=== PATIENT | male | born 1945 | race Caucasian/White ===

== ENCOUNTER 2016-12-29 12:08 | Inpatient (IN) | payer MEDICARE ==
[2016-12-29 12:09] VITALS: BMI 24.2
--- NOTE | 2016-12-29 12:50 | ED PDOC ---
Lower Extremity Pain/Injury Time Seen by Provider: 12/29/16 12:22 Chief Complaint (Nursing): Lower Extremity Problem/Injury Chief Complaint (Provider): right knee pain History Per: Patient, EMS Additional Complaint(s): Patient states at home yesterday he tripped and fell injuring right knee. Initially he was able to get up and walk around and took Advil for pain. Patient did not seek medical attention yesterday and woke up today with increasing pain and inability to walk or bear weight. He called ambulance and was brought here. Patient rates the pain as an 8 out of 10. He denies any other injuries as a result of fall and denies any dizziness or syncope prior to fall, no head injury or LOC. No meds taken for pain relief today. Past Medical History Reviewed: Historical Data, Nursing Documentation, Vital Signs Vital Signs: Last Vital Signs Temp Pulse Resp BP Pulse Ox 98 12/29/16 12:12 - Medical History PMH: Anemia, Arthritis, CAD, CHF, COPD, HTN, Hypercholesterolemia, Chronic Kidney Disease (renal insufficiency) - Surgical History Surgical History: CABG (CABG x 4 - 1997), Cholecystectomy (11/2002), Coronary Stent (2005 (3x)), Pacemaker Other surgeries: toe amputation, left hip replacement, eye surgery - Family History Family History: States: No Known Family Hx - Living Arrangements Living Arrangements: Alone - Social History Current smoker - smoking cessation education provided: Yes (1 ppd) Alcohol: None Drugs: Denies - Home Medications Home Medications: Ambulatory Orders Medication Instructions Recorded Atorvastatin [Lipitor] 40 mg PO DAILY 08/26/14 Brimonidine Tartrate/Timolol 1 drop OU BID 08/26/14 [Combigan 0.2%-0.5% Eye Drops] Clopidogrel [Plavix] 75 mg PO DAILY 08/26/14 Tamsulosin [Flomax] 0.4 mg PO DAILY 05/17/15 Insulin Aspart, Recombinant 12 units SC BID 12/28/15 [Novolog] Insulin Glargine,Hum.rec.anlog 25 units SC HS 12/28/15 [Lantus] Carvedilol [Coreg] 6.25 mg PO Q12 #0 tab 12/31/15 Furosemide [Lasix] 40 mg PO DAILY #0 udc 12/31/15 Potassium Chloride [K-Tab ER] 10 meq PO DAILY #30 tablet.er 12/31/15 Valsartan [Diovan] 160 mg PO DAILY #0 tab 12/31/15 - Allergies Allergies/Adverse Reactions: Allergies Allergy/AdvReac Type Severity Reaction Status Date / Time No Known Allergies Allergy Verified 12/29/16 12:11 Wells Criteria for PE - Wells Criteria for Pulmonary Embolism Clinical Signs and Symptoms of DVT: No P.E is #1 Diagnosis, or Equally Likely: No Heart Rate >100: No Immobilization at least 3 days;Surgery previous 4 weeks: No Previous, objectively diagnosed PE or DVT: No Hemoptysis: No Malignancy w/treatment within 6 months, or palliative: No Total Score: 0 Review of Systems ROS Statement: Except As Marked, All Systems Reviewed And Found Negative Constitutional: Negative for: Fever Cardiovascular: Negative for: Chest Pain Respiratory: Negative for: Cough Gastrointestinal: Negative for: Nausea, Vomiting Musculoskeletal: Positive for: Leg Pain (Right knee pain status post fall yesterday) Physical Exam - Reviewed Nursing Documentation Reviewed: Yes Vital Signs Reviewed: Yes - Physical Exam Appears: Positive for: Well Skin: Negative for: Rash Cardiovascular/Chest: Positive for: Regular Rate, Rhythm Respiratory: Positive for: Normal Breath Sounds Extremity: Positive for: Other (Moderate swelling and tenderness with decreased range of motion of right knee, unable to perform straight leg raise, normal distal sensation) Neurologic/Psych: Positive for: Alert, Oriented - Laboratory Results Result Diagrams: 12/29/16 14:20 12/29/16 14:20 - ECG Interpretation Of ECG: No acute changes noted on EKG, reviewed by ED attending O2 Sat by Pulse Oximetry: 98 Pulse Ox Interpretation: Normal - Other Rad Right knee X-ray X-Ray Interpretation: patellar fracture, degenerative changes, ? tib plateau fx CT right knee X-Ray: Read By Radiologist X-Ray Interpretation: see below bedside chest X-Ray: Interpreted by Me, Viewed By Me X-Ray Interpretation: no acute finding Medical Decision Making Medical Decision Makin-year-old male with right knee pain Plan: Percocet for pain X-ray right knee X-ray demonstrates patellar fracture with questionable tibial plateau fracture, CT of the right knee was ordered. CT: IMPRESSION: 1.Longitudinal acute nondisplaced fracture in the lateral patella. 2. Longitudinal acute nondisplaced fracture in the lateral tibial plateau. 3. Moderate hemarthrosis. 4. Permeative pattern in the visualized bones. The differential considerations include multiple myeloma, lymphoma and metastasis amongst others. Clinical correlation and follow-up is advised. Primary care doctor is Dr. Lin. Case was discussed with family practice resident who will admit patient and contact ortho for consult. Knee immobilizer was applied to the patient's right leg. Patient is aware of admission and he agrees to stay. Procedures - Splinting Location: right knee Pre-Made Type: knee immobilizer Pre-Proc Neuro Vasc Exam: normal Post-Proc Neuro Vasc Exam: normal Disposition - Clinical Impression Clinical Impression: Tibial plateau fracture, right, Right patella fracture - Patient ED Disposition Is Patient to be Admitted: Yes - Disposition Disposition Time: 19:35 Condition: FAIR - Pt Status Changed To: Hospital Disposition Of: Inpatient - Admit Certification Admit to Inpatient:: After my assessment, the patient will require hospitalization for at least two midnights. This is because of the severity of symptoms shown, intensity of services needed, and/or the medical risk in this patient being treated as an outpatient. - POA Present On Arrival: None Results - Lab Results Lab Results: 12/29/16 14:20 WBC 10.6 RBC 4.83 Hgb 13.9 Hct 41.9 MCV 86.7 MCH 28.9 MCHC 33.3 RDW 15.0 H Plt Count 218 MPV 8.8 Neut % (Auto) 74.6 Lymph % (Auto) 8.7 L [place] % (Auto) 14.1 H Eos % (Auto) 1.7 Baso % (Auto) 0.9 Neut # 7.9 H Lymph # 0.9 L [place] # 1.5 H Eos # 0.2 Baso # 0.1 Neutrophils % (Manual) 74 Lymphocytes % (Manual) 9 L Reactive Lymphs % 2 H Monocytes % (Manual) 13 H Eosinophils % (Manual) 1 Basophils % (Manual) 1 Platelet Estimate Normal Anisocytosis (manual) Slight Sodium 144 Potassium 4.2 Chloride 106 Carbon Dioxide 23 Anion Gap 20 BUN 43 H Creatinine 3.0 H Est GFR ( Amer) 25 Est GFR (Non-Af Amer) 21 Random Glucose 146 H Calcium 9.5 Total Bilirubin 1.2 AST 22 ALT 19 L Alkaline Phosphatase 94 Total Protein 7.0 Albumin 4.0 Globulin 3.0 Albumin/Globulin Ratio 1.3
[2016-12-29] MEDS ORDERED: Oxycodone/Acetaminophen 5/325 mg Tab PO STA ×2 (12:52→19:33)
[2016-12-29] MEDS ORDERED: Sodium Chloride 0.9% 1,000 ML IV STA (14:03)
--- NOTE | 2016-12-29 14:35 | RAD ---
PROCEDURE: Right Knee Radiographs. HISTORY: Trauma COMPARISON: None. FINDINGS: BONES: There is an acute longitudinal fracture in the lateral patella. There is diffuse bone demineralization. Bone alignment is normal. JOINTS: There is severe tricompartmental degenerative osteoarthrosis with reduced on the marginal osteophytes and chondrocalcinosis. JOINT EFFUSION: There is a moderate suprapatellar joint effusion. OTHER FINDINGS: There is moderate prepatellar soft tissue swelling. There are advanced atherosclerotic vascular calcifications. IMPRESSION: Acute longitudinal fracture in the lateral patella. Moderate suprapatellar joint effusion.
[2016-12-29 14:52] LABS: BASO # 0.1 K/uL (0.0-0.2); BASO % 0.9 % (0.0-2.0); EOS # 0.2 K/uL (0.0-0.7); EOS % 1.7 % (0.0-4.0); HEMATOCRIT 41.9 % (35.0-51.0); LYMPH # 0.9 K/uL (1.0-4.3); LYMPH % 8.7 % (20.0-40.0); MEAN CELL VOLUME 86.7 fl (80.0-94.0); MEAN CORPUSCULAR HEMOGLOBIN 28.9 pg (27.0-31.0); MEAN CORPUSCULAR HGB CONC 33.3 g/dL (33.0-37.0); MEAN PLATELET VOLUME 8.8 fl (7.2-11.7); MONO # 1.5 K/uL (0.0-0.8); MONO % 14.1 % (0.0-10.0); NEUT # 7.9 K/uL (1.8-7.0); NEUT % 74.6 % (50.0-75.0); NRBC % 0.1 % (0.0-0.0); PLATELET COUNT 218 K/uL (130-400); WHITE BLOOD COUNT 10.6 K/uL (4.8-10.8)
[2016-12-29 15:04] LABS: ALB/GLOB RATIO 1.3 (1.0-2.1); BILIRUBIN,TOTAL 1.2 mg/dl (0.2-1.3); CALCIUM 9.5 mg/dL (8.4-10.2); POTASSIUM 4.2 MMOL/L (3.6-5.0)
[2016-12-29 15:28] LABS: BASOPHIL 1 % (0-2); EOSINOPHIL 1 % (0-7); NEUTROPHIL 74 % (42-75); REACTIVE LYMPHOCYTES 2 % (0-0); TOTAL CELLS COUNTED 100
--- NOTE | 2016-12-29 16:25 | RAD ---
HISTORY: clearance COMPARISON: 12/28/2015 FINDINGS: LUNGS: The lungs are well inflated and clear. PLEURA: No significant pleural effusion identified, no pneumothorax apparent. CARDIOVASCULAR: There is mild cardiomegaly. Status post CABG. There is stable position of a left-sided dual lead transvenous permanent pacing device. OSSEOUS STRUCTURES: No significant abnormalities. VISUALIZED UPPER ABDOMEN: Normal. OTHER FINDINGS: None. IMPRESSION: No active pulmonary disease.
--- NOTE | 2016-12-29 17:47 | CT ---
PROCEDURE: CT of the Right Hip. HISTORY: trauma, ? tib plateau fracture COMPARISON: Plain radiographs performed the same day. TECHNIQUE: Contiguous axial images of the right hip were obtained. Coronal and sagittal reformats were generated. FINDINGS: BONES: There is redemonstration of a longitudinal nondisplaced fracture in the lateral patella. There is also a long to jejunal nondisplaced fracture in the lateral tibial plateau. There is permeative pattern in the visualized tibia, fibula, femur and patella. There is also diffuse bone demineralization. There is severe tricompartmental degenerative osteoarthrosis with reduced joint spaces, marginal osteophytes and chondrocalcinosis, worse in the medial compartment. There is moderate hemarthrosis. There are advanced atherosclerotic vascular calcifications. SOFT TISSUES: There is a moderate prepatellar and periarticular soft tissue swelling. IMPRESSION: 1.Longitudinal acute nondisplaced fracture in the lateral patella. 2. Longitudinal acute nondisplaced fracture in the lateral tibial plateau. 3. Moderate hemarthrosis. 4. Permeative pattern in the visualized bones. The differential considerations include multiple myeloma, lymphoma and metastasis amongst others. Clinical correlation and follow-up is advised.
--- NOTE | 2016-12-29 19:33 | CP.PCM.HP ---
<Brayden Polo - Last Filed: 12/29/16 21:40> History of Present Illness - History of Present Illness History of Present Illness: 71 yo M w/ PMHx of CAD (s/p CABG), CHF, COPD, HTN, CKD, Legally blind presented to ED today due to right knee pain and inability to bear weight after mechanical fall 1 day prior. Patient states he is legally blind and when he woke up yesterday, he needed to use the restroom and usually he requires some time in the morning for his eyes to adjust, though states he couldn't wait. Patient went to the bathroom but was unable to find handle to open and fell onto knee. Patient denies lightheadedness, dizziness, chest pain, dyspnea, loss of consciousness, injury to other parts of body (including head), or palpitations. Patient has been compliant with medications. Lives alone at home without services and minimal help by family. No meds taken for pain relief today. PMHx: Anemia, Arthritis, CAD, CHF, COPD, HTN, Hypercholesterolemia, CKD, Legally blind Meds: As per chart Allergies: NKDA Surgeries: CABG (CABG x 4 - 1997), Cholecystectomy (11/2002), Coronary Stent ( 2005 (3x)), AICD/Pacemaker?, toe amputation, left hip replacement Family hx: Non-contributory Social hx: Lives at home alone without nursing services. Able to do most ADLs he states though neice/daughter occasionally come to help. Has walker at home but does not use it. ED Course: Vitals stable PE: Right knee (Mod swelling and tenderness with decreased range of motion of right knee, unable to perform straight leg raise, normal distal sensation) Percocet x1 CXR, EKG unremarkable Right knee X-ray demonstrates patellar fracture with questionable tibial plateau fracture, CT of the right knee was ordered. CT: IMPRESSION: 1.Longitudinal acute nondisplaced fracture in the lateral patella. 2. Longitudinal acute nondisplaced fracture in the lateral tibial plateau. 3. Moderate hemarthrosis. 4. Permeative pattern in the visualized bones. The differential considerations include multiple myeloma, lymphoma and metastasis amongst others. Clinical correlation and follow-up is advised. Patient put into knee immobilizer Present on Admission - Present on Admission Any Indicators Present on Admission: No Review of Systems - Review of Systems All systems: reviewed and no additional remarkable complaints except (mentioned in HPI) Past Patient History - Infectious Disease Hx of Infectious Diseases: None - Tetanus Immunizations Tetanus Immunization: Unknown - Past Medical History & Family History Past Medical History?: Yes - Past Social History Alcohol: None Drugs: Denies - CARDIAC Hx Congestive Heart Failure: Yes Hx Hypercholesterolemia: Yes Hx Hypertension: Yes Hx Pacemaker: Yes - PULMONARY Hx Chronic Obstructive Pulmonary Disease (COPD): Yes - NEUROLOGICAL Hx Neurological Disorder: Yes - HEENT Hx HEENT Problems: Yes (Glaucoma both eyes according to patient) Hx Glaucoma: Yes - RENAL Hx Chronic Kidney Disease: Yes (renal insufficiency) - ENDOCRINE/METABOLIC Hx Endocrine Disorders: Yes Hx Diabetes Mellitus Type 1: Yes - HEMATOLOGICAL/ONCOLOGICAL Hx Anemia: Yes - INTEGUMENTARY Hx Dermatological Problems: No Other/Comment: both lower extremities with dry skin and with brownish discoloration - MUSCULOSKELETAL/RHEUMATOLOGICAL Hx Arthritis: Yes - GASTROINTESTINAL Hx Gastrointestinal Disorders: No - GENITOURINARY/GYNECOLOGICAL Hx Genitourinary Disorders: No - PSYCHIATRIC Hx Psychophysiologic Disorder: No Hx Substance Use: No - SURGICAL HISTORY Hx Cholecystectomy: Yes (11/2002) Hx Coronary Artery Bypass Graft: Yes (CABG x - 1997) Hx Coronary Stent: Yes (2005 (3x)) - ANESTHESIA Hx Anesthesia: Yes Hx Anesthesia Reactions: No Hx Malignant Hyperthermia: No Meds Allergies/Adverse Reactions: Allergies Allergy/AdvReac Type Severity Reaction Status Date / Time No Known Allergies Allergy Verified 12/29/16 12:11 Physical Exam - Constitutional Appears: Well, Non-toxic, No Acute Distress - Head Exam Head Exam: ATRAUMATIC, NORMAL INSPECTION, NORMOCEPHALIC - Eye Exam Eye Exam: Normal appearance - Neck Exam Neck exam: Positive for: Normal Inspection - Respiratory Exam Respiratory Exam: Clear to Auscultation Bilateral, NORMAL BREATHING PATTERN. absent: Rales, Rhonchi, Wheezes - Cardiovascular Exam Cardiovascular Exam: RRR, +S1, +S2 - GI/Abdominal Exam GI & Abdominal Exam: Normal Bowel Sounds, Soft. absent: Tenderness - Extremities Exam Additional comments: RLE: knee in knee immobilizer, pinky toe amputated, pedal pulses present 2+, pain on papation and movement of extremity, neurovascular intact LLE: normal inspection with neurovascular intact unable to bear weight - Neurological Exam Neurological exam: Alert, Oriented x3 - Psychiatric Exam Psychiatric exam: Normal Affect, Normal Mood - Skin Skin Exam: Dry, Intact, Normal Color, Warm Results - Vital Signs Recent Vital Signs: Last Vital Signs Temp Pulse Resp BP Pulse Ox 98 12/29/16 19:28 - Labs Result Diagrams: 12/29/16 14:20 12/29/16 14:20 Assessment & Plan (1) Right patella fracture Status: Acute (2) Tibial plateau fracture, right Status: Acute (3) CHF (congestive heart failure) Status: Chronic (4) Hypertension Status: Chronic (5) Diabetes Status: Chronic (6) Renal failure Status: Chronic (7) DVT prophylaxis Status: Acute - Assessment and Plan (Free Text) Assessment: 71 yo M w/ PMHx of CAD (s/p CABG), CHF, COPD, HTN, CKD, Legally blind with right patella/tibial fracture s/p mechanical fall 1 day ago. Right knee X-ray demonstrates patellar fracture with questionable tibial plateau fracture, CT of the right knee was ordered. CT: IMPRESSION: 1.Longitudinal acute nondisplaced fracture in the lateral patella. 2. Longitudinal acute nondisplaced fracture in the lateral tibial plateau. 3. Moderate hemarthrosis. 4. Permeative pattern in the visualized bones. The differential considerations include multiple myeloma, lymphoma and metastasis amongst others. Clinical correlation and follow-up is advised. Plan: (1) Right patella fracture, Tibial plateau fracture - Due to mechanical fall which his vision loss likely contributed towards - No history/symptoms of neurological/cardiovascular cause - Patient unable to bear weight, in addition he has no one to care for him at home, patient will need a plan for a safe/effective discharge - Ortho consulted, appreciate recommendations - Knee splinted in knee immobilizer - Percocet PRN Pain - PT/OT eval - Social work for possible services at home - Of note, reported in CT Scan " Permeative pattern in the visualized bones. The differential considerations include multiple myeloma, lymphoma and metastasis amongst others. Clinical correlation and follow-up is advised. " (2) CAD/CHF (congestive heart failure) - Stable asymptomatic - Continue home meds except for plavix at this time in case of surgical intervention - Dr. Ney Marcano is patient's hydrochloric area supervisor (3) Hypertension - Stable, asymptomatic - Continue home meds (4) Diabetes - Lantus 25U HS - Novalog 12U BID - Accuchecks ACHS - Diabetic diet - Insulin sliding scale - Last HgbA1c 2014 7.5%, will repeat (5) Chronic Renal failure (Stage 4) - Stable at this time - Non-dialysis patient - Follows on the outpatient basis with Dr. Naidu (6) DVT prophylaxis - SCDs for now in case of surgical intervention Pharmacy is [facility] in [place]. <Leif Lin - Last Filed: 12/30/16 07:05> Results - Vital Signs Recent Vital Signs: Last Vital Signs Temp 98 F 12/29/16 20:42 Pulse 82 12/30/16 01:36 Resp 18 12/30/16 01:36 BP 174/97 H 12/29/16 23:02 Pulse Ox 97 12/30/16 01:36 - Labs Result Diagrams: 12/29/16 14:20 12/29/16 14:20 Labs: Laboratory Results - last 24 hr 12/29/16 22:27 POC Glucose (mg/dL) 106 Attending/Attestation - Attestation I have personally seen and examined this patient.: Yes I have fully participated in the care of the patient.: Yes I have reviewed all pertinent clinical information: Yes
[2016-12-29] MEDS ORDERED: Oxycodone/Acetaminophen 5/325 mg Tab ONE (20:04)
[2016-12-29] MEDS ORDERED: Glucagon Recombinant 1 mg Inj IM PRN (20:23)
[2016-12-29] MEDS ORDERED: Dextrose 50% SYRINGE Inj (50 ml) IV PRN (20:23)
[2016-12-29] MEDS: Insulin Regular 100 units/ml SC SCH (23:12)
[2016-12-29] MEDS: Insulin Detemir 100 Units/ml Inj SC SCH (23:13)
[2016-12-30] MEDS: Insulin Regular 100 units/ml SC SCH ×4 (06:50→23:02)
[2016-12-30 07:05] LABS: MEAN CELL VOLUME 88.7 fl (80.0-94.0); MEAN CORPUSCULAR HEMOGLOBIN 28.6 pg (27.0-31.0); MEAN CORPUSCULAR HGB CONC 32.3 g/dL (33.0-37.0); RED CELL DISTRIBUTION WIDTH 14.9 % (11.5-14.5)
[2016-12-30 07:20] LABS: PARTIAL THROMBOPLASTIN TIME 31.5 SECONDS (23.3-32.5)
[2016-12-30 07:25] LABS: BLOOD UREA NITROGEN 41 mg/dl (9-20); CALCIUM 8.5 mg/dL (8.4-10.2); CARBON DIOXIDE 22 mmol/L (22-30); CHLORIDE 105 mmol/L (98-107); CHOLESTEROL 70 mg/dL (0-199); GFR AFRICAN-AMERICAN 28; GLUCOSE,RANDOM 95 mg/dL (75-110); SODIUM 144 mmol/l (132-148)
--- NOTE | 2016-12-30 07:38 | PQF CHF ---
This form is a permanent part of the medical record 12/30/16 Dr. Tanner, Would you please clarify the TYPE of CHF if known.An old echo is in the EMR. Clarification of your documentation is requested to better reflect the severity of illness and intensity of treatment of your patient. Indicators present [x] Diagnosis of history of CHF [] BNP > 200 [] Imaging Finding of Pulmonary Edema /Pleural Effusions [] Fluid/Volume Overload [] Pitting edema [] Ejection Fraction < 40% (Indicative of Systolic Heart Failure) [] Ejection Fraction > 40% (Indicative of Diastolic Heart Failure) [] Dyspnea / Orthopenea / Paroxysmal Nocturnal Dyspnea [] Other: Location in the medical record that reflects the above clinical findings: [] Treatment Provided: [] PHYSICIAN'S RESPONSE Based on your medical judgment of the clinical indicators outlined above, are you treating this patient for a known or suspected: [] Acute CHF [] Systolic [] Diastolic [] Combined [] Chronic CHF [] Systolic [] Diastolic [] Combined [] Acute on Chronic CHF []Systolic [] Diastolic [] Combined [] CHF due hypertension [] Acute systolic []Chronic systolic [] Acute/ chronic systolic [] Other, please indicate: [] [] If Unable to Determine, please check the box, sign and date. Present On Admission (POA) Indicator: [] Present at the time of admission [] Not present at the time of admission [] Clinically Undetermined In responding to this query, please exercise your independent professional judgment. The fact that a question is asked does not imply that any particular answer is desired or expected. Thank you for your clarification on this documentation. If you have any questions please call:[phone] * Thank you, Liss Wilson RN CDMP MTDD
[2016-12-30 07:52] LABS: POTASSIUM 4.8 MMOL/L (3.6-5.0)
--- NOTE | 2016-12-30 08:39 | CP.PCM.PN ---
<Sheba Romero - Last Filed: 12/30/16 09:31> Subjective - Date & Time of Evaluation Date of Evaluation: 12/30/16 Time of Evaluation: 08:39 - Subjective Subjective: 71 year old male with PMHx of CAD (s/p CABG), CHF, COPD, HTN, CKD, Legally blind was seen resting comfortably at bedside for right knee pain and inability to bear weight after mechanical fall. Patient is resting comfortably in bed with knee immobilizer intact to right lower extremity. He denies any pain. Denies any acute events overnight. Denies n/v/f/c/sob/cp. Objective - Vital Signs/Intake and Output Vital Signs (last 24 hours): Temp Pulse Resp BP Pulse Ox 98.4 F 70 20 113/55 L 97 12/30/16 08:17 12/30/16 08:17 12/30/16 08:17 12/30/16 08:17 12/30/16 08:17 - Medications Medications: Current Medications Atorvastatin Calcium (Lipitor) 40 mg PO DAILY [facility] Brimonidine Tartrate (Alphagan 0.2% Opht) 1 drop OU BID [facility] Carvedilol (Coreg) 6.25 mg PO Q12 [facility] Last Admin: 12/29/16 23:02 Dose: 6.25 mg Dextrose (Glutose 15) 0 gm PO ONCE PRN; Protocol PRN Reason: Hypoglycemia Protocol Dextrose (Dextrose 50% Inj) 0 ml IV STAT PRN; Protocol PRN Reason: Hyglycemia Protocol Furosemide (Lasix) 40 mg PO DAILY [facility] Glucagon (Glucagen Diagnostic Kit) 0 mg IM STAT PRN; Protocol PRN Reason: Hypoglycemia Protocol Influenza Virus Vaccine (Afluria (Pf)(5yr & Older)) 0.5 ml IM .ONCE ONE Stop: 12/30/16 09:01 Insulin Detemir (Levemir) 25 units SC HS [facility] Last Admin: 12/29/16 23:13 Dose: Not Given Insulin Human Lispro (Humalog) 12 units SC BID [facility] Insulin Human Regular (Humulin R) 0 units SC ACHS [facility] PRN Reason: Protocol Last Admin: 12/30/16 06:50 Dose: Not Given Oxycodone/Acetaminophen (Percocet 5/325 Mg Tab) 1 tab PO Q4 PRN PRN Reason: Pain, moderate (4-7) Stop: 01/01/17 20:24 Potassium Chloride (Klor-Con 10) 10 meq PO DAILY [facility] Tamsulosin HCl (Flomax) 0.4 mg PO DAILY [facility] Timolol Maleate (Timoptic 0.5% Ophth Soln) 1 drop OU BID [facility] Valsartan (Diovan) 160 mg PO DAILY [facility] - Labs Labs: 12/30/16 05:30 12/30/16 05:30 PT 11.7 SECONDS (9.6-11.2) H 12/30/16 05:30 INR 1.13 (0.92-1.08) H 12/30/16 05:30 APTT 31.5 SECONDS (23.3-32.5) 12/30/16 05:30 - Constitutional Appears: Well, Non-toxic, No Acute Distress - Head Exam Head Exam: NORMAL INSPECTION - Eye Exam Eye Exam: Normal appearance - Neck Exam Neck Exam: Normal Inspection - Respiratory Exam Respiratory Exam: NORMAL BREATHING PATTERN. absent: Rales, Rhonchi, Wheezes - Cardiovascular Exam Cardiovascular Exam: REGULAR RHYTHM, +S1, +S2 - GI/Abdominal Exam GI & Abdominal Exam: Soft, Normal Bowel Sounds. absent: Tenderness - Extremities Exam Additional comments: Knee immobilizer in place to RLE. 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 Pedal pulses present b/l. Nails 1-9 are elongated and dystrophic. - Back Exam Back Exam: NORMAL INSPECTION - Neurological Exam Neurological Exam: Alert, Awake, Oriented x3 - Psychiatric Exam Psychiatric exam: Normal Affect, Normal Mood - Skin Skin Exam: Dry, Normal Color, Warm Assessment and Plan - Assessment and Plan (Free Text) Assessment: 71 yo M w/ PMHx of CAD (s/p CABG), CHF, COPD, HTN, CKD, Legally blind with right patella/tibial fracture s/p mechanical fall 2 day ago. Plan: 1. Right patella fracture, Tibial plateau fracture - Right knee X-ray demonstrates patellar fracture with questionable tibial plateau fracture, CT of the right knee was ordered. - CT: IMPRESSION: 1.Longitudinal acute nondisplaced fracture in the lateral patella. 2. Longitudinal acute nondisplaced fracture in the lateral tibial plateau. 3. Moderate hemarthrosis. 4. Permeative pattern in the visualized bones. The differential considerations include multiple myeloma, lymphoma and metastasis amongst others. Clinical correlation and follow-up is advised. - Due to mechanical fall which his vision loss likely contributed towards - No history/symptoms of neurological/cardiovascular cause - Patient unable to bear weight, in addition he has no one to care for him at home, patient will need a plan for a safe/effective discharge - Ortho consulted, appreciate recommendations - Knee splinted in knee immobilizer - Percocet PRN Pain - PT/OT eval - Social work for possible services at home - Podiatry consulted for dystrophic toenails b/l 2. CAD/CHF (congestive heart failure) - Stable asymptomatic - Continue home meds except for plavix at this time in case of surgical intervention - Dr. Ney Marcano is patient's front desk auxiliary 3. Hypertension - Stable, asymptomatic - Continue home meds 4. Diabetes - Lantus 25U HS - Novalog 12U BID - Accuchecks ACHS - Diabetic diet - Insulin sliding scale - Last HgbA1c 2014 7.5%, will repeat 5. Chronic Renal failure (Stage 4) - Stable at this time - Non-dialysis patient - Follows on the outpatient basis with Dr. Naidu 6. DVT prophylaxis - SCDs for now in case of surgical intervention <Leif Lin - Last Filed: 01/04/17 07:02> Objective - Vital Signs/Intake and Output Vital Signs (last 24 hours): Temp Pulse Resp BP Pulse Ox 97.9 F 75 18 142/82 99 01/02/17 16:54 01/02/17 16:54 01/02/17 16:54 01/02/17 16:54 01/02/17 16:54 - Labs Labs: 01/02/17 06:58 01/02/17 06:58 PT 10.5 SECONDS (9.6-11.2) 01/02/17 06:58 INR 1.01 (0.92-1.08) 01/02/17 06:58 APTT 37.3 SECONDS (23.3-32.5) H 01/02/17 06:58 Attending/Attestation - Attestation I have personally seen and examined this patient.: Yes I have fully participated in the care of the patient.: Yes I have reviewed all pertinent clinical information, including history, physical exam and plan: Yes
[2016-12-30] MEDS ORDERED: Patient's Own Med (Brimonidine Tartrate/Timolol [Combigan 0.2%-0.5% Eye Drops] 1 DROP) OU SCH (09:00)
[2016-12-30] MEDS ORDERED: Influenza Vaccine(5yr & older) 0.5 ML/45 MCG IM ONE (09:00)
[2016-12-30] MEDS: Potassium Chloride 10 mEq ER Tab PO SCH (09:10)
[2016-12-30] MEDS: Oxycodone/Acetaminophen 5/325 mg Tab PO PRN ×2 (09:12→13:22)
[2016-12-30] MEDS: Brimonidine 0.2% 50 DROP/5 ML BOTTLE OU SCH ×2 (09:16→17:15)
[2016-12-30] MEDS: Insulin Lispro (humaLOG) 100 Units/ml Inj SC SCH ×2 (10:26→17:15)
--- NOTE | 2016-12-30 11:22 | CARD ---
APPROVED REPORT EKG Measurement Heart [id number] <Conclusion> Normal sinus rhythm Right bundle branch block Left anterior fascicular block Bifascicular block Anteroseptal infarct, age undetermined Abnormal ECG
--- NOTE | 2016-12-30 17:52 | CP.PCM.CON ---
History of Present Illness - History of Present Illness History of Present Illness: 73 year old male patient with PMHx of CAD, CHF, COPD, HTN, CKD, Legally blind was seen at bedside this morning after request for podiatry consultation concerning elongated, dystrophic toenails x10. Patient was resting comfortably in bed at the time of visit. AAO x3. Patient states that he is a diabetic patient and cannot trim his toenails because he cannot see. Patient denies of any pain to bilateral lower extremities. Patient denies of any N/V/F/C or SOB today Past Patient History - Infectious Disease Hx of Infectious Diseases: None - Tetanus Immunizations Tetanus Immunization: Unknown - Past Medical History & Family History Past Medical History?: Yes - Past Social History Smoking Status: Heavy Smoker > 10 Cigarettes Daily - CARDIAC Hx Cardiac Disorders: Yes Hx Congestive Heart Failure: Yes Hx Hypercholesterolemia: Yes Hx Hypertension: Yes Hx Pacemaker: Yes - PULMONARY Hx Respiratory Disorders: Yes Hx Chronic Obstructive Pulmonary Disease (COPD): Yes - NEUROLOGICAL Hx Neurological Disorder: No - HEENT Hx HEENT Problems: Yes (Glaucoma both eyes according to patient) Hx Glaucoma: Yes - RENAL Hx Chronic Kidney Disease: Yes (renal insufficiency) - ENDOCRINE/METABOLIC Hx Endocrine Disorders: Yes Hx Diabetes Mellitus Type 1: Yes - HEMATOLOGICAL/ONCOLOGICAL Hx Blood Disorders: Yes Hx Anemia: Yes - INTEGUMENTARY Hx Dermatological Problems: No Other/Comment: both lower extremities with dry skin and with brownish discoloration - MUSCULOSKELETAL/RHEUMATOLOGICAL Hx Musculoskeletal Disorders: Yes Hx Arthritis: Yes Hx Falls: Yes Hx Fractures: Yes - GASTROINTESTINAL Hx Gastrointestinal Disorders: No - GENITOURINARY/GYNECOLOGICAL Hx Genitourinary Disorders: No - PSYCHIATRIC Hx Psychophysiologic Disorder: No Hx Substance Use: No - SURGICAL HISTORY Hx Surgeries: Yes Hx Amputation: Yes (Right 5th toe on right foot) Hx Cholecystectomy: Yes (11/2002) Hx Coronary Artery Bypass Graft: Yes (CABG x - 1997) Hx Coronary Stent: Yes (2005 (3x)) Other/Comment: Left Hip replacement - ANESTHESIA Hx Anesthesia: Yes Hx Anesthesia Reactions: No Hx Malignant Hyperthermia: No Meds Allergies/Adverse Reactions: Allergies Allergy/AdvReac Type Severity Reaction Status Date / Time No Known Allergies Allergy Verified 12/29/16 12:11 - Medications Medications: Current Medications Atorvastatin Calcium (Lipitor) 40 mg PO DAILY [facility] Last Admin: 12/30/16 09:16 Dose: 40 mg Brimonidine Tartrate (Alphagan 0.2% Opht) 1 drop OU BID [facility] Last Admin: 12/30/16 17:15 Dose: 1 unit Carvedilol (Coreg) 6.25 mg PO Q12 [facility] Last Admin: 12/30/16 09:08 Dose: 6.25 mg Dextrose (Glutose 15) 0 gm PO ONCE PRN; Protocol PRN Reason: Hypoglycemia Protocol Dextrose (Dextrose 50% Inj) 0 ml IV STAT PRN; Protocol PRN Reason: Hyglycemia Protocol Furosemide (Lasix) 40 mg PO DAILY [facility] Last Admin: 12/30/16 09:09 Dose: 40 mg Glucagon (Glucagen Diagnostic Kit) 0 mg IM STAT PRN; Protocol PRN Reason: Hypoglycemia Protocol Insulin Detemir (Levemir) 25 units SC HS [facility] Last Admin: 12/29/16 23:13 Dose: Not Given Insulin Human Lispro (Humalog) 12 units SC BID [facility] Last Admin: 12/30/16 17:15 Dose: 12 units Insulin Human Regular (Humulin R) 0 units SC ACHS [facility] PRN Reason: Protocol Last Admin: 12/30/16 17:22 Dose: 3 units Oxycodone/Acetaminophen (Percocet 5/325 Mg Tab) 1 tab PO Q4 PRN PRN Reason: Pain, moderate (4-7) Stop: 01/01/17 20:24 Last Admin: 12/30/16 13:22 Dose: 1 tab Potassium Chloride (Klor-Con 10) 10 meq PO DAILY [facility] Last Admin: 12/30/16 09:10 Dose: 10 meq Tamsulosin HCl (Flomax) 0.4 mg PO DAILY [facility] Last Admin: 12/30/16 09:14 Dose: 0.4 mg Timolol Maleate (Timoptic 0.5% Ophth Soln) 1 drop OU BID [facility] Last Admin: 12/30/16 17:14 Dose: 1 unit Valsartan (Diovan) 160 mg PO DAILY [facility] Last Admin: 12/30/16 09:14 Dose: 160 mg Physical Exam - Constitutional Appears: Well, Non-toxic, No Acute Distress - Extremities Exam Additional comments: Bilateral lower extremities exam DERM: No open wound noted. No erythema is noted. No sign of infection noted. Elongated, dystrophic, mycotic toenails noted to digits x10. VASC: Palpable DP noted bilaterally 2/4, non-palpable DP noted bilaterally. [employer] less than 3 seconds to all digits noted NEURO: Gross sensation intact ORTHO: No pain on palpation, no pain on passive ROM of B/L ankle, MTPJs. Manual muscle testing 5/5 bilaterally. - Neurological Exam Neurological exam: Alert, Oriented x3 - Psychiatric Exam Psychiatric exam: Normal Affect, Normal Mood - Skin Skin Exam: Normal Color, Warm Results - Vital Signs Recent Vital Signs: Last Vital Signs Temp 98.2 F 12/30/16 16:52 Pulse 71 12/30/16 16:52 Resp 20 12/30/16 16:52 BP 164/75 H 12/30/16 16:52 Pulse Ox 96 12/30/16 16:52 - Labs Result Diagrams: 12/30/16 05:30 12/30/16 05:30 Labs: Laboratory Results - last 24 hr 12/29/16 12/30/16 12/30/16 22:27 05:30 06:39 WBC 8.0 RBC 4.63 Hgb 13.2 Hct 41.0 MCV 88.7 D MCH 28.6 MCHC 32.3 L RDW 14.9 H Plt Count 204 PT 11.7 H INR 1.13 H APTT 31.5 Sodium 144 Potassium 4.8 Chloride 105 Carbon Dioxide 22 Anion Gap 22 H BUN 41 H Creatinine 2.7 H Est GFR ( Amer) 28 Est GFR (Non-Af Amer) 23 POC Glucose (mg/dL) 106 94 Random Glucose 95 Hemoglobin A1c 6.8 H Calcium 8.5 Triglycerides 76 D Cholesterol 70 LDL Cholesterol Direct < 30 HDL Cholesterol 29 L 12/30/16 12/30/16 10:55 16:16 WBC RBC Hgb Hct MCV MCH MCHC RDW Plt Count PT INR APTT Sodium Potassium Chloride Carbon Dioxide Anion Gap BUN Creatinine Est GFR ( Amer) Est GFR (Non-Af Amer) POC Glucose (mg/dL) 180 H 222 H Random Glucose Hemoglobin A1c Calcium Triglycerides Cholesterol LDL Cholesterol Direct HDL Cholesterol Assessment & Plan - Assessment and Plan (Free Text) Assessment: 73 year old diabetic female patient presents with elongated, dystrophic, mycotic toenails x10 Plan: Patient was seen, evaluated and treated with all questions and concerns addressed labs and vitals reviewed discussed in detail with Dr. Castro Elongated, dystrophic toenails were sharply cut with a large nail nipper up to level of normal length without any incident x10 Patient is stable from podiatry standpoint Podiatry signing off Please re-consult podiatry if any other lower extremity problems occur, thank you
[2016-12-30] MEDS: Insulin Detemir 100 Units/ml Inj SC SCH (23:08)
[2016-12-31] MEDS: Insulin Regular 100 units/ml SC SCH ×4 (07:10→22:28)
[2016-12-31] MEDS: Brimonidine 0.2% 50 DROP/5 ML BOTTLE OU SCH ×2 (08:58→17:46)
[2016-12-31] MEDS: Potassium Chloride 10 mEq ER Tab PO SCH (09:01)
[2016-12-31] MEDS: Insulin Lispro (humaLOG) 100 Units/ml Inj SC SCH ×2 (09:04→17:47)
--- NOTE | 2016-12-31 10:24 | CP.PCM.PN ---
Subjective - Date & Time of Evaluation Date of Evaluation: 12/31/16 Time of Evaluation: 10:25 - Subjective Subjective: S: pt with R knee discomfort Objective - Vital Signs/Intake and Output Vital Signs (last 24 hours): Temp Pulse Resp BP Pulse Ox 98.1 F 83 20 164/90 H 96 12/31/16 08:39 12/31/16 08:59 12/31/16 08:39 12/31/16 09:01 12/31/16 08:39 - Medications Medications: Current Medications Atorvastatin Calcium (Lipitor) 40 mg PO DAILY [facility] Last Admin: 12/31/16 09:01 Dose: 40 mg Brimonidine Tartrate (Alphagan 0.2% Opht) 1 drop OU BID [facility] Last Admin: 12/31/16 08:58 Dose: 1 unit Carvedilol (Coreg) 6.25 mg PO Q12 [facility] Last Admin: 12/31/16 08:59 Dose: 6.25 mg Dextrose (Glutose 15) 0 gm PO ONCE PRN; Protocol PRN Reason: Hypoglycemia Protocol Dextrose (Dextrose 50% Inj) 0 ml IV STAT PRN; Protocol PRN Reason: Hyglycemia Protocol Furosemide (Lasix) 40 mg PO DAILY [facility] Last Admin: 12/31/16 09:01 Dose: 40 mg Glucagon (Glucagen Diagnostic Kit) 0 mg IM STAT PRN; Protocol PRN Reason: Hypoglycemia Protocol Insulin Detemir (Levemir) 25 units SC HS [facility] Last Admin: 12/30/16 23:08 Dose: Not Given Insulin Human Lispro (Humalog) 12 units SC BID [facility] Last Admin: 12/31/16 09:04 Dose: 12 units Insulin Human Regular (Humulin R) 0 units SC ACHS [facility] PRN Reason: Protocol Last Admin: 12/31/16 07:10 Dose: Not Given Nicotine (Nicoderm Cq) 1 patch TD DAILY [facility] Oxycodone/Acetaminophen (Percocet 5/325 Mg Tab) 1 tab PO Q4 PRN PRN Reason: Pain, moderate (4-7) Stop: 01/01/17 20:24 Last Admin: 12/30/16 13:22 Dose: 1 tab Potassium Chloride (Klor-Con 10) 10 meq PO DAILY [facility] Last Admin: 12/31/16 09:01 Dose: 10 meq Tamsulosin HCl (Flomax) 0.4 mg PO DAILY [facility] Last Admin: 12/31/16 09:00 Dose: 0.4 mg Timolol Maleate (Timoptic 0.5% Ophth Soln) 1 drop OU BID [facility] Last Admin: 12/31/16 09:01 Dose: 1 unit Valsartan (Diovan) 160 mg PO DAILY [facility] Last Admin: 12/31/16 09:00 Dose: 160 mg - Labs Labs: 12/30/16 05:30 12/30/16 05:30 PT 11.7 SECONDS (9.6-11.2) H 12/30/16 05:30 INR 1.13 (0.92-1.08) H 12/30/16 05:30 APTT 31.5 SECONDS (23.3-32.5) 12/30/16 05:30 - Skin Additional comments: Objective stance/gait- defrred/ R knee immobilizer intact N/V intact \no gross deficits orthopedicallys stable Rehab= strict TOE TOUCH with walker knee immobilizer NOT to be removed
--- NOTE | 2016-12-31 12:58 | CP.PCM.PN ---
<Yoel Corbin - Last Filed: 12/31/16 13:11> Subjective - Date & Time of Evaluation Date of Evaluation: 12/31/16 Time of Evaluation: 12:56 - Subjective Subjective: pt seen and examined at bedside today. Pt had an uneventful overnight. Currently lying in bed comfortably in NAD. Pt has no new complaints. Reports pain is controlled with medications. Denies fever/chills, headaches, CP/SOB/ palpitations, N/V/D/C, urinary symptoms, numbness/tingling. Objective - Vital Signs/Intake and Output Vital Signs (last 24 hours): Temp Pulse Resp BP Pulse Ox 98.1 F 83 20 164/90 H 96 12/31/16 08:39 12/31/16 08:59 12/31/16 08:39 12/31/16 09:01 12/31/16 08:39 - Medications Medications: Current Medications Atorvastatin Calcium (Lipitor) 40 mg PO DAILY [facility] Last Admin: 12/31/16 09:01 Dose: 40 mg Brimonidine Tartrate (Alphagan 0.2% Opht) 1 drop OU BID [facility] Last Admin: 12/31/16 08:58 Dose: 1 unit Carvedilol (Coreg) 6.25 mg PO Q12 [facility] Last Admin: 12/31/16 08:59 Dose: 6.25 mg Dextrose (Glutose 15) 0 gm PO ONCE PRN; Protocol PRN Reason: Hypoglycemia Protocol Dextrose (Dextrose 50% Inj) 0 ml IV STAT PRN; Protocol PRN Reason: Hyglycemia Protocol Furosemide (Lasix) 40 mg PO DAILY [facility] Last Admin: 12/31/16 09:01 Dose: 40 mg Glucagon (Glucagen Diagnostic Kit) 0 mg IM STAT PRN; Protocol PRN Reason: Hypoglycemia Protocol Insulin Detemir (Levemir) 25 units SC HS [facility] Last Admin: 12/30/16 23:08 Dose: Not Given Insulin Human Lispro (Humalog) 12 units SC BID [facility] Last Admin: 12/31/16 09:04 Dose: 12 units Insulin Human Regular (Humulin R) 0 units SC ACHS [facility] PRN Reason: Protocol Last Admin: 12/31/16 12:53 Dose: Not Given Nicotine (Nicoderm Cq) 1 patch TD DAILY [facility] Last Admin: 12/31/16 12:55 Dose: 1 patch Oxycodone/Acetaminophen (Percocet 5/325 Mg Tab) 1 tab PO Q4 PRN PRN Reason: Pain, moderate (4-7) Stop: 01/01/17 20:24 Last Admin: 12/30/16 13:22 Dose: 1 tab Potassium Chloride (Klor-Con 10) 10 meq PO DAILY [facility] Last Admin: 12/31/16 09:01 Dose: 10 meq Tamsulosin HCl (Flomax) 0.4 mg PO DAILY [facility] Last Admin: 12/31/16 09:00 Dose: 0.4 mg Timolol Maleate (Timoptic 0.5% Ophth Soln) 1 drop OU BID [facility] Last Admin: 12/31/16 09:01 Dose: 1 unit Valsartan (Diovan) 160 mg PO DAILY [facility] Last Admin: 12/31/16 09:00 Dose: 160 mg - Labs Labs: 12/30/16 05:30 12/30/16 05:30 PT 11.7 SECONDS (9.6-11.2) H 12/30/16 05:30 INR 1.13 (0.92-1.08) H 12/30/16 05:30 APTT 31.5 SECONDS (23.3-32.5) 12/30/16 05:30 - Constitutional Appears: Well, Non-toxic, No Acute Distress - Head Exam Head Exam: ATRAUMATIC, NORMOCEPHALIC - Respiratory Exam Respiratory Exam: Clear to Ausculation Bilateral, NORMAL BREATHING PATTERN. absent: Rales, Rhonchi, Wheezes, Respiratory Distress - Cardiovascular Exam Cardiovascular Exam: REGULAR RHYTHM, RRR, +S1, +S2. absent: Gallop, JVD, Rubs, Murmur - GI/Abdominal Exam GI & Abdominal Exam: Soft, Normal Bowel Sounds. absent: Distended, Guarding, Rigid, Tenderness - Extremities Exam Extremities Exam: absent: Calf Tenderness, Joint Swelling, Pedal Edema Additional comments: right knee currently in immobilizer. RLE motor and sensation intact. - Neurological Exam Neurological Exam: Alert, Awake, CN II-XII Intact, Oriented x3 - Psychiatric Exam Psychiatric exam: Normal Affect, Normal Mood - Skin Skin Exam: Dry, Intact, Normal Color, Warm Assessment and Plan - Assessment and Plan (Free Text) Assessment: 71 yo M w/ PMHx of CAD (s/p CABG), CHF, COPD, HTN, CKD, legal blindness with right patella/tibial fracture s/p mechanical fall 2 day ago. Plan: 1. Right patella fracture, Tibial plateau fracture - Right knee X-ray demonstrates patellar fracture with questionable tibial plateau fracture, CT of the right knee was ordered. - CT: IMPRESSION: 1.Longitudinal acute nondisplaced fracture in the lateral patella. 2. Longitudinal acute nondisplaced fracture in the lateral tibial plateau. 3. Moderate hemarthrosis. 4. Permeative pattern in the visualized bones. The differential considerations include multiple myeloma, lymphoma and metastasis amongst others. Clinical correlation and follow-up is advised. - Due to mechanical fall which his vision loss likely contributed towards - No history/symptoms of neurological/cardiovascular cause - Patient unable to bear weight, in addition he has no one to care for him at home, patient will need a plan for a safe/effective discharge - Ortho consult: No surgical intervention at this time, keep knee in immobilizer as per Dr. Robb. - Knee splinted in knee immobilizer - Percocet PRN Pain - PT/OT eval - Social work for possible services at home - Podiatry consulted for dystrophic toenails b/l 2. CAD/CHF (congestive heart failure) - Stable asymptomatic - Continue home meds - Dr. Ney Marcano is patient's senior technical analyst 3. Hypertension - Stable, asymptomatic - Continue home meds 4. Diabetes - Lantus 25U HS - Novalog 12U BID - Accuchecks ACHS - Diabetic diet - Insulin sliding scale - Last HgbA1c 2014 7.5%, will repeat 5. Chronic Renal failure (Stage 4) - Stable at this time - Non-dialysis patient - Follows on the outpatient basis with Dr. Naidu 6. DVT prophylaxis -CrCl: 30.4 -Heparin 5000 units SC Qdaily <Antonia Bianchi - Last Filed: 01/01/17 08:58> Objective - Vital Signs/Intake and Output Vital Signs (last 24 hours): Temp Pulse Resp BP Pulse Ox 98.4 F 86 20 144/75 96 01/01/17 08:01 01/01/17 08:01 01/01/17 08:01 01/01/17 08:01 01/01/17 08:01 - Medications Medications: Current Medications Atorvastatin Calcium (Lipitor) 40 mg PO DAILY [facility] Last Admin: 12/31/16 09:01 Dose: 40 mg Brimonidine Tartrate (Alphagan 0.2% Opht) 1 drop OU BID [facility] Last Admin: 12/31/16 17:46 Dose: 1 unit Carvedilol (Coreg) 6.25 mg PO Q12 [facility] Last Admin: 12/31/16 21:55 Dose: 6.25 mg Dextrose (Glutose 15) 0 gm PO ONCE PRN; Protocol PRN Reason: Hypoglycemia Protocol Dextrose (Dextrose 50% Inj) 0 ml IV STAT PRN; Protocol PRN Reason: Hyglycemia Protocol Furosemide (Lasix) 40 mg PO DAILY [facility] Last Admin: 12/31/16 09:01 Dose: 40 mg Glucagon (Glucagen Diagnostic Kit) 0 mg IM STAT PRN; Protocol PRN Reason: Hypoglycemia Protocol Heparin Sodium (Porcine) (Heparin) 5,000 units SC Q8 [facility] PRN Reason: Protocol Last Admin: 01/01/17 01:09 Dose: 5,000 units Insulin Detemir (Levemir) 25 units SC HS [facility] Last Admin: 12/31/16 22:28 Dose: Not Given Insulin Human Lispro (Humalog) 12 units SC BID [facility] Last Admin: 12/31/16 17:47 Dose: 12 units Insulin Human Regular (Humulin R) 0 units SC ACHS [facility] PRN Reason: Protocol Last Admin: 12/31/16 22:28 Dose: Not Given Nicotine (Nicoderm Cq) 1 patch TD DAILY [facility] Last Admin: 12/31/16 12:55 Dose: 1 patch Oxycodone/Acetaminophen (Percocet 5/325 Mg Tab) 1 tab PO Q4 PRN PRN Reason: Pain, moderate (4-7) Stop: 01/01/17 20:24 Last Admin: 12/30/16 13:22 Dose: 1 tab Potassium Chloride (Klor-Con 10) 10 meq PO DAILY [facility] Last Admin: 12/31/16 09:01 Dose: 10 meq Tamsulosin HCl (Flomax) 0.4 mg PO DAILY [facility] Last Admin: 12/31/16 09:00 Dose: 0.4 mg Timolol Maleate (Timoptic 0.5% Ophth Soln) 1 drop OU BID [facility] Last Admin: 12/31/16 17:47 Dose: 1 unit Valsartan (Diovan) 160 mg PO DAILY [facility] Last Admin: 12/31/16 09:00 Dose: 160 mg - Labs Labs: 12/30/16 05:30 01/01/17 06:00 PT 11.7 SECONDS (9.6-11.2) H 12/30/16 05:30 INR 1.13 (0.92-1.08) H 12/30/16 05:30 APTT 31.5 SECONDS (23.3-32.5) 12/30/16 05:30 - Skin Additional comments: ATTESTATION NOTE ATTENDING NOTE PATIENT SEEN AND EXAMINED. CASE DISCUSSED WITH RESIDENT. AGREE WITH PLAN.
[2016-12-31] MEDS: Insulin Detemir 100 Units/ml Inj SC SCH (22:28)
[2017-01-01 08:06] LABS: CALCIUM 9.2 mg/dL (8.4-10.2); POTASSIUM 4.2 MMOL/L (3.6-5.0)
--- NOTE | 2017-01-01 09:43 | CP.PCM.PN ---
Subjective - Date & Time of Evaluation Date of Evaluation: 01/01/17 Time of Evaluation: 09:40 - Subjective Subjective: S- pt comfortable at time of encountyer /immobilized in knee immobilizer Objective - Vital Signs/Intake and Output Vital Signs (last 24 hours): Temp Pulse Resp BP Pulse Ox 98.4 F 86 20 144/75 96 01/01/17 08:01 01/01/17 08:01 01/01/17 08:01 01/01/17 08:01 01/01/17 08:01 - Medications Medications: Current Medications Atorvastatin Calcium (Lipitor) 40 mg PO DAILY [facility] Last Admin: 12/31/16 09:01 Dose: 40 mg Brimonidine Tartrate (Alphagan 0.2% Opht) 1 drop OU BID [facility] Last Admin: 12/31/16 17:46 Dose: 1 unit Carvedilol (Coreg) 6.25 mg PO Q12 [facility] Last Admin: 12/31/16 21:55 Dose: 6.25 mg Dextrose (Glutose 15) 0 gm PO ONCE PRN; Protocol PRN Reason: Hypoglycemia Protocol Dextrose (Dextrose 50% Inj) 0 ml IV STAT PRN; Protocol PRN Reason: Hyglycemia Protocol Furosemide (Lasix) 40 mg PO DAILY [facility] Last Admin: 12/31/16 09:01 Dose: 40 mg Glucagon (Glucagen Diagnostic Kit) 0 mg IM STAT PRN; Protocol PRN Reason: Hypoglycemia Protocol Heparin Sodium (Porcine) (Heparin) 5,000 units SC Q8 [facility] PRN Reason: Protocol Last Admin: 01/01/17 01:09 Dose: 5,000 units Insulin Detemir (Levemir) 25 units SC HS [facility] Last Admin: 12/31/16 22:28 Dose: Not Given Insulin Human Lispro (Humalog) 12 units SC BID [facility] Last Admin: 12/31/16 17:47 Dose: 12 units Insulin Human Regular (Humulin R) 0 units SC ACHS [facility] PRN Reason: Protocol Last Admin: 12/31/16 22:28 Dose: Not Given Nicotine (Nicoderm Cq) 1 patch TD DAILY [facility] Last Admin: 12/31/16 12:55 Dose: 1 patch Oxycodone/Acetaminophen (Percocet 5/325 Mg Tab) 1 tab PO Q4 PRN PRN Reason: Pain, moderate (4-7) Stop: 01/01/17 20:24 Last Admin: 03/31/17 13:22 Dose: 1 tab Potassium Chloride (Klor-Con 10) 10 meq PO DAILY [facility] Last Admin: 12/31/16 09:01 Dose: 10 meq Tamsulosin HCl (Flomax) 0.4 mg PO DAILY [facility] Last Admin: 12/31/16 09:00 Dose: 0.4 mg Timolol Maleate (Timoptic 0.5% Ophth Soln) 1 drop OU BID [facility] Last Admin: 12/31/16 17:47 Dose: 1 unit Valsartan (Diovan) 160 mg PO DAILY [facility] Last Admin: 12/31/16 09:00 Dose: 160 mg - Labs Labs: 12/30/16 05:30 01/01/17 06:00 PT 11.7 SECONDS (9.6-11.2) H 12/30/16 05:30 INR 1.13 (0.92-1.08) H 12/30/16 05:30 APTT 31.5 SECONDS (23.3-32.5) 12/30/16 05:30 - Skin Additional comments: Objective stance/gaiot- defrred orthopedically stable R knee with minimal tenderness orthopedically stable Assessment and Plan - Assessment and Plan (Free Text) Assessment: A- s/p tibial plateau fx s/p patella fx P orthopedically stable physio- toe touch weight bearing immobilzer not tot be removed
--- NOTE | 2017-01-01 09:47 | CP.PCM.PN ---
Addendum entered and electronically signed by Tali Bellamy MD 21:59: Clarification for CHF systolic dysfunction LVEF=30 % Original Note: <Tali Bellamy - Last Filed: 01/01/17 11:29> Subjective - Date & Time of Evaluation Date of Evaluation: 01/01/17 Time of Evaluation: 09:39 - Subjective Subjective: Patient seen and examined at bedside no acute event overnight, afebrile, slept well. patient denied nausea,vomits diarrhea, chest pain palpitation urinary problems. he admits no bowel movement since admission, Objective - Vital Signs/Intake and Output Vital Signs (last 24 hours): Temp Pulse Resp BP Pulse Ox 98.4 F 86 20 144/75 96 01/01/17 08:01 01/01/17 08:01 01/01/17 08:01 01/01/17 08:01 01/01/17 08:01 - Medications Medications: Current Medications Atorvastatin Calcium (Lipitor) 40 mg PO DAILY [facility] Last Admin: 12/31/16 09:01 Dose: 40 mg Brimonidine Tartrate (Alphagan 0.2% Opht) 1 drop OU BID [facility] Last Admin: 12/31/16 17:46 Dose: 1 unit Carvedilol (Coreg) 6.25 mg PO Q12 [facility] Last Admin: 12/31/16 21:55 Dose: 6.25 mg Dextrose (Glutose 15) 0 gm PO ONCE PRN; Protocol PRN Reason: Hypoglycemia Protocol Dextrose (Dextrose 50% Inj) 0 ml IV STAT PRN; Protocol PRN Reason: Hyglycemia Protocol Furosemide (Lasix) 40 mg PO DAILY [facility] Last Admin: 12/31/16 09:01 Dose: 40 mg Glucagon (Glucagen Diagnostic Kit) 0 mg IM STAT PRN; Protocol PRN Reason: Hypoglycemia Protocol Heparin Sodium (Porcine) (Heparin) 5,000 units SC Q8 [facility] PRN Reason: Protocol Last Admin: 01/01/17 01:09 Dose: 5,000 units Insulin Detemir (Levemir) 25 units SC HS [facility] Last Admin: 12/31/16 22:28 Dose: Not Given Insulin Human Lispro (Humalog) 12 units SC BID [facility] Last Admin: 12/31/16 17:47 Dose: 12 units Insulin Human Regular (Humulin R) 0 units SC ACHS [facility] PRN Reason: Protocol Last Admin: 12/31/16 22:28 Dose: Not Given Nicotine (Nicoderm Cq) 1 patch TD DAILY [facility] Last Admin: 12/31/16 12:55 Dose: 1 patch Oxycodone/Acetaminophen (Percocet 5/325 Mg Tab) 1 tab PO Q4 PRN PRN Reason: Pain, moderate (4-7) Stop: 01/01/17 20:24 Last Admin: 12/30/16 13:22 Dose: 1 tab Potassium Chloride (Klor-Con 10) 10 meq PO DAILY [facility] Last Admin: 12/31/16 09:01 Dose: 10 meq Tamsulosin HCl (Flomax) 0.4 mg PO DAILY [facility] Last Admin: 12/31/16 09:00 Dose: 0.4 mg Timolol Maleate (Timoptic 0.5% Ophth Soln) 1 drop OU BID [facility] Last Admin: 12/31/16 17:47 Dose: 1 unit Valsartan (Diovan) 160 mg PO DAILY [facility] Last Admin: 12/31/16 09:00 Dose: 160 mg - Labs Labs: 12/30/16 05:30 01/01/17 06:00 PT 11.7 SECONDS (9.6-11.2) H 12/30/16 05:30 INR 1.13 (0.92-1.08) H 12/30/16 05:30 APTT 31.5 SECONDS (23.3-32.5) 12/30/16 05:30 - Head Exam Additional comments: ATRAUMATIC, NORMOCEPHALIC - Respiratory Exam Respiratory Exam: Clear to Ausculation Bilateral, NORMAL BREATHING PATTERN. absent: Rales, Rhonchi, Wheezes, Respiratory Distress - Cardiovascular Exam Cardiovascular Exam: REGULAR RHYTHM, RRR, +S1, +S2. absent: Gallop, JVD, Rubs, Murmur - GI/Abdominal Exam GI & Abdominal Exam: Soft, Normal Bowel Sounds. absent: Distended, Guarding, Rigid, Tenderness - Extremities Exam Extremities Exam: absent: Calf Tenderness, Joint Swelling, Pedal Edema Additional comments: right knee currently in immobilizer. RLE motor and sensation intact. - Neurological Exam Neurological Exam: Alert, Awake, CN II-XII Intact, Oriented x3 - Psychiatric Exam Psychiatric exam: Normal Affect, Normal Mood - Skin Skin Exam: Dry, Intact, Normal Color, Warm Assessment and Plan - Assessment and Plan (Free Text) Assessment: 71 yo M w/ PMHx of CAD (s/p CABG), CHF, COPD, HTN, CKD, legal blindness with right patella/tibial fracture, nondisplaced Plan: 1. Right patella fracture, Tibial plateau fracture - Right knee X-ray demonstrates patellar fracture with questionable tibial plateau fracture, CT of the right knee was ordered. - CT: IMPRESSION: 1.Longitudinal acute nondisplaced fracture in the lateral patella. Longitudinal acute nondisplaced fracture in the lateral tibial plateau. Moderate hemarthrosis. - Patient unable to bear weight, in addition he has no one to care for him at home, patient will need a plan for a safe/effective discharge - Ortho consult: No surgical intervention at this time, keep knee in immobilizer as per Dr. Robb. - Knee splinted in knee immobilizer - Percocet PRN Pain - PT/OT eval - Social work for possible services at home - Podiatry consulted for dystrophic toenails b/l 2. CAD/CHF (congestive heart failure) - Stable asymptomatic - Continue home meds - Dr. Ney Marcano is patient's telephoto installer 3. Hypertension - Stable, asymptomatic - Continue home meds 4. Diabetes - Lantus 25U HS - Novalog 12U BID - Accuchecks ACHS - Diabetic diet - Insulin sliding scale - Last HgbA1c 2014 7.5%, will repeat 5. Chronic Renal failure (Stage 4) - Stable at this time - Non-dialysis patient - Follows on the outpatient basis with Dr. Naidu 6. DVT prophylaxis -CrCl: 30.4 -Heparin 5000 units SC Qdaily <Antonia Bianchi - Last Filed: 01/02/17 08:27> Objective - Vital Signs/Intake and Output Vital Signs (last 24 hours): Temp Pulse Resp BP Pulse Ox 98.1 F 103 H 20 124/79 96 01/01/17 23:33 01/01/17 23:33 01/01/17 23:33 01/01/17 23:33 01/01/17 23:33 - Medications Medications: Current Medications Atorvastatin Calcium (Lipitor) 40 mg PO DAILY [facility] Last Admin: 01/01/17 09:55 Dose: 40 mg Brimonidine Tartrate (Alphagan 0.2% Opht) 1 drop OU BID [facility] Last Admin: 01/01/17 16:49 Dose: 1 unit Carvedilol (Coreg) 6.25 mg PO Q12 [facility] Last Admin: 01/01/17 23:09 Dose: 6.25 mg Dextrose (Glutose 15) 0 gm PO ONCE PRN; Protocol PRN Reason: Hypoglycemia Protocol Dextrose (Dextrose 50% Inj) 0 ml IV STAT PRN; Protocol PRN Reason: Hyglycemia Protocol Docusate Sodium (Colace) 100 mg PO BID [facility] Last Admin: 01/01/17 16:50 Dose: 100 mg Furosemide (Lasix) 40 mg PO DAILY [facility] Last Admin: 01/01/17 09:55 Dose: 40 mg Glucagon (Glucagen Diagnostic Kit) 0 mg IM STAT PRN; Protocol PRN Reason: Hypoglycemia Protocol Heparin Sodium (Porcine) (Heparin) 5,000 units SC Q8 [facility] PRN Reason: Protocol Last Admin: 01/02/17 00:52 Dose: 5,000 units Insulin Detemir (Levemir) 25 units SC HS [facility] Last Admin: 01/01/17 23:18 Dose: Not Given Insulin Human Lispro (Humalog) 12 units SC BID [facility] Last Admin: 01/01/17 16:53 Dose: 12 units Insulin Human Regular (Humulin R) 0 units SC ACHS [facility] PRN Reason: Protocol Last Admin: 01/01/17 23:18 Dose: Not Given Nicotine (Nicoderm Cq) 1 patch TD DAILY [facility] Last Admin: 01/01/17 09:55 Dose: 1 patch Oxycodone/Acetaminophen (Percocet 5/325 Mg Tab) 1 tab PO Q4 PRN PRN Reason: Pain, moderate (4-7) Stop: 01/05/17 03:03 Last Admin: 01/02/17 03:07 Dose: 1 tab Potassium Chloride (Klor-Con 10) 10 meq PO DAILY [facility] Last Admin: 01/01/17 09:54 Dose: 10 meq Tamsulosin HCl (Flomax) 0.4 mg PO DAILY [facility] Last Admin: 01/01/17 09:52 Dose: 0.4 mg Timolol Maleate (Timoptic 0.5% Ophth Soln) 1 drop OU BID [facility] Last Admin: 01/01/17 16:48 Dose: 1 unit Valsartan (Diovan) 160 mg PO DAILY [facility] Last Admin: 01/01/17 09:52 Dose: 160 mg - Labs Labs: 01/02/17 06:58 01/02/17 06:58 PT 11.7 SECONDS (9.6-11.2) H 12/30/16 05:30 INR 1.13 (0.92-1.08) H 12/30/16 05:30 APTT 31.5 SECONDS (23.3-32.5) 12/30/16 05:30 - Skin Additional comments: Attestation statement Attending note Patient seen and examined. Case discussed with resident. Agree with plan.
[2017-01-01] MEDS: Brimonidine 0.2% 50 DROP/5 ML BOTTLE OU SCH ×2 (09:51→16:49)
[2017-01-01] MEDS: Insulin Lispro (humaLOG) 100 Units/ml Inj SC SCH ×2 (09:53→16:53)
[2017-01-01] MEDS: Potassium Chloride 10 mEq ER Tab PO SCH (09:54)
[2017-01-01] MEDS: Insulin Regular 100 units/ml SC SCH ×4 (09:54→23:18)
[2017-01-01] MEDS: Insulin Detemir 100 Units/ml Inj SC SCH (23:18)
[2017-01-02] MEDS ORDERED: Oxycodone/Acetaminophen 5/325 mg Tab PO PRN (03:02)
[2017-01-02 07:14] LABS: HEMATOCRIT 40.6 % (35.0-51.0); MEAN CELL VOLUME 88.2 fl (80.0-94.0); MEAN CORPUSCULAR HEMOGLOBIN 28.5 pg (27.0-31.0); MEAN CORPUSCULAR HGB CONC 32.4 g/dL (33.0-37.0); RED CELL DISTRIBUTION WIDTH 14.4 % (11.5-14.5); WHITE BLOOD COUNT 7.8 K/uL (4.8-10.8)
[2017-01-02 07:30] LABS: CALCIUM 9.1 mg/dL (8.4-10.2); POTASSIUM 4.1 MMOL/L (3.6-5.0)
[2017-01-02 07:49] LABS: PARTIAL THROMBOPLASTIN TIME 37.3 SECONDS (23.3-32.5)
[2017-01-02] MEDS: Brimonidine 0.2% 50 DROP/5 ML BOTTLE OU SCH ×2 (08:45→17:08)
[2017-01-02] MEDS: Insulin Lispro (humaLOG) 100 Units/ml Inj SC SCH ×2 (08:47→17:12)
[2017-01-02] MEDS: Insulin Regular 100 units/ml SC SCH ×3 (08:49→17:12)
--- NOTE | 2017-01-02 10:27 | CP.PCM.DIS ---
Addendum entered and electronically signed by Godwin Rush MD 01/02/17 16:01: Patient has changed his mind and is agreeable for discharge to [facility] for subacute rehab Original Note: <Godwin Rush - Last Filed: 01/02/17 09:51> Provider - Provider Date of Admission: 12/29/16 18:22 Attending physician: Leif Lin MD Time Spent in preparation of Discharge (in minutes): 30 Diagnosis - Discharge Diagnosis (1) Tibial plateau fracture, right Status: Acute (2) Right patella fracture Status: Acute Hospital Course - Lab Results Lab Results: Most Recent Lab Values WBC 7.8 K/uL (4.8-10.8) 01/02/17 06:58 RBC 4.60 Mil/uL (4.40-5.90) 01/02/17 06:58 Hgb 13.1 g/dL (12.0-18.0) 01/02/17 06:58 Hct 40.6 % (35.0-51.0) 01/02/17 06:58 MCV 88.2 fl (80.0-94.0) 01/02/17 06:58 MCH 28.5 pg (27.0-31.0) 01/02/17 06:58 MCHC 32.4 g/dL (33.0-37.0) L 01/02/17 06:58 RDW 14.4 % (11.5-14.5) 01/02/17 06:58 Plt Count 200 K/uL (130-400) 01/02/17 06:58 MPV 8.8 fl (7.2-11.7) 12/29/16 14:20 Neut % (Auto) 74.6 % (50.0-75.0) 12/29/16 14:20 Lymph % (Auto) 8.7 % (20.0-40.0) L 12/29/16 14:20 Fallon % (Auto) 14.1 % (0.0-10.0) H 12/29/16 14:20 Eos % (Auto) 1.7 % (0.0-4.0) 12/29/16 14:20 Baso % (Auto) 0.9 % (0.0-2.0) 12/29/16 14:20 Neut # 7.9 K/uL (1.8-7.0) H 12/29/16 14:20 Lymph # 0.9 K/uL (1.0-4.3) L 12/29/16 14:20 Fallon # 1.5 K/uL (0.0-0.8) H 12/29/16 14:20 Eos # 0.2 K/uL (0.0-0.7) 12/29/16 14:20 Baso # 0.1 K/uL (0.0-0.2) 12/29/16 14:20 Neutrophils % (Manual) 74 % (42-75) 12/29/16 14:20 Lymphocytes % (Manual) 9 % (20-50) L 12/29/16 14:20 Reactive Lymphs % 2 % (0-0) H 12/29/16 14:20 Monocytes % (Manual) 13 % (0-10) H 12/29/16 14:20 Eosinophils % (Manual) 1 % (0-7) 12/29/16 14:20 Basophils % (Manual) 1 % (0-2) 12/29/16 14:20 Platelet Estimate Normal (NORMAL) 12/29/16 14:20 Anisocytosis (manual) Slight 12/29/16 14:20 PT 11.7 SECONDS (9.6-11.2) H 12/30/16 05:30 INR 1.13 (0.92-1.08) H 12/30/16 05:30 APTT 31.5 SECONDS (23.3-32.5) 12/30/16 05:30 Sodium 141 mmol/l (132-148) 01/02/17 06:58 Potassium 4.1 MMOL/L (3.6-5.0) 01/02/17 06:58 Chloride 104 mmol/L (98-107) 01/02/17 06:58 Carbon Dioxide 22 mmol/L (22-30) 01/02/17 06:58 Anion Gap 19 (10-20) 01/02/17 06:58 BUN 53 mg/dl (9-20) H 01/02/17 06:58 Creatinine 3.1 mg/dL (0.8-1.5) H 01/02/17 06:58 Est GFR ( Amer) 24 01/02/17 06:58 Est GFR (Non-Af Amer) 20 01/02/17 06:58 POC Glucose (mg/dL) 136 mg/dL (65-110) H 01/02/17 05:36 Random Glucose 123 mg/dL (75-110) H 01/02/17 06:58 Hemoglobin A1c 6.8 % (4.2-6.5) H 12/30/16 05:30 Calcium 9.1 mg/dL (8.4-10.2) 01/02/17 06:58 Total Bilirubin 1.2 mg/dl (0.2-1.3) 12/29/16 14:20 AST 22 U/L (17-59) 12/29/16 14:20 ALT 19 U/L (21-72) L 12/29/16 14:20 Alkaline Phosphatase 94 U/L (38-126) 12/29/16 14:20 Total Protein 7.0 G/DL (6.3-8.2) 12/29/16 14:20 Albumin 4.0 g/dL (3.5-5.0) 12/29/16 14:20 Globulin 3.0 gm/dL (2.2-3.9) 12/29/16 14:20 Albumin/Globulin Ratio 1.3 (1.0-2.1) 12/29/16 14:20 Triglycerides 76 mg/DL (0-149) D 12/30/16 05:30 Cholesterol 70 mg/dL (0-199) 12/30/16 05:30 LDL Cholesterol Direct < 30 mg/dL (0-129) 12/30/16 05:30 HDL Cholesterol 29 MG/DL (30-70) L 12/30/16 05:30 - Hospital Course Hospital Course: 71 yo M w/ PMHx of CAD (s/p CABG), CHF, COPD, HTN, CKD, legal blindness with right patella/tibial fracture, nondisplaced. The patient sustained the trauma from a mechanical fall on 12/28/2016. The patient was seen by orthopaedics and podiatry. Podiatry cut the patient's elongated, dystrophic toenails. Orhtopaedics recommended no surgical intervention at this time but recommends patient to be in knee immobilizer. The patient was seen by physical therapy and is able to be OOB to recliner. .The patient follows Dr. Marcano for cardiology as an outpatient and Dr. Naidu for nephrology as outpatient. The patient states improvement and pain managed, requiring only 1 percocet overnight. The patient will be discharged with a script for referral for [facility] visiting nurse, home-health aide, and physical therapy/occupational therapy. The patient has been seen, examined, and deemed medically with no contraindication for discharge home. The patient refuses TCU and prefers to go home with family. - Date & Time of H&P Date of H&P: 12/29/16 Time of H&P: 19:32 Discharge Exam - Head Exam Head Exam: ATRAUMATIC, NORMOCEPHALIC - Eye Exam Additional comments: legally blind - Respiratory Exam Respiratory Exam: Clear to PA & Lateral, NORMAL BREATHING PATTERN. absent: Accessory Muscle Use, Decreased Breath Sounds, Prolonged Expiratory Phase, Rales , Rhonchi, Wheezes, Respiratory Distress, Stridor - Cardiovascular Exam Cardiovascular Exam: REGULAR RHYTHM. absent: Tachycardia - GI/Abdominal Exam GI & Abdominal Exam: Normal Bowel Sounds, Soft. absent: Distended, Mass, Tenderness - Extremities Exam Additional comments: right LE in immobilizer, dystrophic nails cut bilaterally by podiatry on 2016 - Neurological Exam Neurological exam: Alert, Oriented x3 - Skin Skin Exam: Dry, Intact, Warm Discharge Plan - Follow Up Plan Condition: FAIR Disposition: TRANSF TO SNF Instructions: Leg Fracture (DC), Leg Fracture (GEN), Patellar Fracture (DC), Patellar Fracture (GEN) Additional Instructions: TOE TOUCH WEIGHT BEARING ON THE RIGHT LEG. IMMOBILIZER ON AT ALL TIMES. HOME PT AND VISITING NURSE. Referrals: Anatoly Delgado III, MD [Staff Provider] - Leif Lin MD [Staff Provider] - <Leif Lin - Last Filed: 01/04/17 07:06> Provider - Provider Date of Admission: 12/29/16 18:22 Attending physician: Leif Lin MD Hospital Course - Lab Results Lab Results: Most Recent Lab Values WBC 7.8 K/uL (4.8-10.8) 01/02/17 06:58 RBC 4.60 Mil/uL (4.40-5.90) 01/02/17 06:58 Hgb 13.1 g/dL (12.0-18.0) 01/02/17 06:58 Hct 40.6 % (35.0-51.0) 01/02/17 06:58 MCV 88.2 fl (80.0-94.0) 01/02/17 06:58 MCH 28.5 pg (27.0-31.0) 01/02/17 06:58 MCHC 32.4 g/dL (33.0-37.0) L 01/02/17 06:58 RDW 14.4 % (11.5-14.5) 01/02/17 06:58 Plt Count 200 K/uL (130-400) 01/02/17 06:58 MPV 8.8 fl (7.2-11.7) 12/29/16 14:20 Neut % (Auto) 74.6 % (50.0-75.0) 12/29/16 14:20 Lymph % (Auto) 8.7 % (20.0-40.0) L 12/29/16 14:20 Fallon % (Auto) 14.1 % (0.0-10.0) H 12/29/16 14:20 Eos % (Auto) 1.7 % (0.0-4.0) 12/29/16 14:20 Baso % (Auto) 0.9 % (0.0-2.0) 12/29/16 14:20 Neut # 7.9 K/uL (1.8-7.0) H 12/29/16 14:20 Lymph # 0.9 K/uL (1.0-4.3) L 12/29/16 14:20 Fallon # 1.5 K/uL (0.0-0.8) H 12/29/16 14:20 Eos # 0.2 K/uL (0.0-0.7) 12/29/16 14:20 Baso # 0.1 K/uL (0.0-0.2) 12/29/16 14:20 Neutrophils % (Manual) 74 % (42-75) 12/29/16 14:20 Lymphocytes % (Manual) 9 % (20-50) L 12/29/16 14:20 Reactive Lymphs % 2 % (0-0) H 12/29/16 14:20 Monocytes % (Manual) 13 % (0-10) H 12/29/16 14:20 Eosinophils % (Manual) 1 % (0-7) 12/29/16 14:20 Basophils % (Manual) 1 % (0-2) 12/29/16 14:20 Platelet Estimate Normal (NORMAL) 12/29/16 14:20 Anisocytosis (manual) Slight 12/29/16 14:20 PT 10.5 SECONDS (9.6-11.2) 01/02/17 06:58 INR 1.01 (0.92-1.08) 01/02/17 06:58 APTT 37.3 SECONDS (23.3-32.5) H 01/02/17 06:58 Sodium 141 mmol/l (132-148) 01/02/17 06:58 Potassium 4.1 MMOL/L (3.6-5.0) 01/02/17 06:58 Chloride 104 mmol/L (98-107) 01/02/17 06:58 Carbon Dioxide 22 mmol/L (22-30) 01/02/17 06:58 Anion Gap 19 (10-20) 01/02/17 06:58 BUN 53 mg/dl (9-20) H 01/02/17 06:58 Creatinine 3.1 mg/dL (0.8-1.5) H 01/02/17 06:58 Est GFR ( Amer) 24 01/02/17 06:58 Est GFR (Non-Af Amer) 20 01/02/17 06:58 POC Glucose (mg/dL) 159 mg/dL (65-110) H 01/02/17 16:07 Random Glucose 123 mg/dL (75-110) H 01/02/17 06:58 Hemoglobin A1c 6.8 % (4.2-6.5) H 12/30/16 05:30 Calcium 9.1 mg/dL (8.4-10.2) 01/02/17 06:58 Total Bilirubin 1.2 mg/dl (0.2-1.3) 12/29/16 14:20 AST 22 U/L (17-59) 12/29/16 14:20 ALT 19 U/L (21-72) L 12/29/16 14:20 Alkaline Phosphatase 94 U/L (38-126) 12/29/16 14:20 Total Protein 7.0 G/DL (6.3-8.2) 12/29/16 14:20 Albumin 4.0 g/dL (3.5-5.0) 12/29/16 14:20 Globulin 3.0 gm/dL (2.2-3.9) 12/29/16 14:20 Albumin/Globulin Ratio 1.3 (1.0-2.1) 12/29/16 14:20 Triglycerides 76 mg/DL (0-149) D 12/30/16 05:30 Cholesterol 70 mg/dL (0-199) 12/30/16 05:30 LDL Cholesterol Direct < 30 mg/dL (0-129) 12/30/16 05:30 HDL Cholesterol 29 MG/DL (30-70) L 12/30/16 05:30 Attending/Attestation - Attestation I have personally seen and examined this patient.: Yes I have fully participated in the care of the patient.: Yes I have reviewed all pertinent clinical information, including history, physical exam and plan: Yes
[2017-01-02 16:56] VITALS: BP 142/82; PULSE 75; RESP 18; TEMP 97.9; O2SAT 99
[2017-01-02] MEDS: Potassium Chloride 10 mEq ER Tab PO SCH (17:13)
== END 2017-01-02 18:40 | DRG 563 ==
LOC: H.ER 12:08 → H.ERHOLD 18:22 → H.MEDSURG1 20:55
PROVIDERS: ADMIT Family Medicine; ATTEND Family Medicine
PROC: 3E0234Z Introduction of Serum, Toxoid and Vaccine into Muscle, Percutaneous Approach (ICD-10-PCS; principal; 2016-12-30)
DX: S82.001A Unspecified fracture of right patella, initial encounter for closed fracture (principal); N18.4 Chronic kidney disease, stage 4 (severe); E10.22 Type 1 diabetes mellitus with diabetic chronic kidney disease; I13.0 Hypertensive heart and chronic kidney disease with heart failure and stage 1 through stage 4 chronic kidney disease, or unspecified chronic kidney disease; I50.22 Chronic systolic (congestive) heart failure; S82.144A Nondisplaced bicondylar fracture of right tibia, initial encounter for closed fracture; D64.9 Anemia, unspecified; Y93.9 Activity, unspecified; Z23 Encounter for immunization; E78.00 Pure hypercholesterolemia, unspecified; F17.200 Nicotine dependence, unspecified, uncomplicated; H40.9 Unspecified glaucoma; H54.8 Legal blindness, as defined in USA; I25.10 Atherosclerotic heart disease of native coronary artery without angina pectoris; J44.9 Chronic obstructive pulmonary disease, unspecified; W01.0XXA Fall on same level from slipping, tripping and stumbling without subsequent striking against object, initial encounter; Z95.0 Presence of cardiac pacemaker; Z95.1 Presence of aortocoronary bypass graft; Z95.5 Presence of coronary angioplasty implant and graft; Z96.642 Presence of left artificial hip joint; L60.3 Nail dystrophy; Y92.009 Unspecified place in unspecified non-institutional (private) residence as the place of occurrence of the external cause

== ENCOUNTER 2018-05-29 20:23 | Emergency (ER) | payer MEDICARE ==
[2018-05-29 20:23] VITALS: BMI 24.2
[2018-05-29 20:34] VITALS: TEMP 98.6
--- NOTE | 2018-05-29 21:58 | ED PDOC ---
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) Hx Glaucoma: Yes - Renal Hx Renal Disorder: Yes (renal insufficiency) - Endocrine/Metabolic Hx Endocrine Disorders: Yes Hx Diabetes Mellitus Type 1: Yes - Hematological/Oncological Hx Blood Disorders: Yes Hx Anemia: Yes - Integumentary Hx Dermatological Disorder: No Other/Comment: both lower extremities with dry skin and with brownish discoloration - Musculoskeletal/Rheumatological Hx Arthritis: Yes - Gastrointestinal Hx Gastrointestinal Disorders: No - Genitourinary/Gynecological Hx Genitourinary Disorders: No - Psychiatric Hx Psychophysiologic Disorder: No Hx Substance Use: No - Surgical History Hx Amputation: Yes (Right 5th toe on right foot) Hx Cholecystectomy: Yes (11/2002) Hx Coronary Artery Bypass Graft: Yes (CABG x - 1997) Hx Coronary Stent: Yes (2005 (3x)) Other/Comment: Left Hip replacement - Anesthesia Hx Anesthesia: Yes Hx Anesthesia Reactions: No Hx Malignant Hyperthermia: No - Suicidal Assessment Feels Threatened In Home Enviroment: No Family/Social History Smoking Status: Heavy Smoker > 10 Cigarettes Daily Hx Alcohol Use: No Hx Substance Use: No Allergies/Home Meds Allergies/Adverse Reactions: Allergies No Known Allergies Allergy (Verified 12/29/16 12:11) Home Medications: Home Meds Medication Instructions Recorded Confirmed Atorvastatin [Lipitor] 40 mg PO DAILY 08/26/14 12/29/16 Brimonidine Tartrate/Timolol 1 drop OU BID 08/26/14 12/29/16 [Combigan 0.2%-0.5% Eye Drops] Clopidogrel [Plavix] 75 mg PO DAILY 08/26/14 12/29/16 Tamsulosin [Flomax] 0.4 mg PO DAILY 05/17/15 12/29/16 Insulin Aspart, Recombinant 12 units SC BID 12/28/15 12/29/16 [Novolog] Insulin Glargine,Hum.rec.anlog 25 units SC HS 12/28/15 12/29/16 [Lantus] Physical Exam Vital Signs Temp Pulse Resp BP Pulse Ox 05/29/18 20:28 98.6 F 80 18 171/106 H 98 Medical Decision Making - RAD Interpretation Radiology Orders: 05/29/18 21:32 Hip Left [HIP MIN 2V W/ PELVIS LT] [RAD] Stat 05/29/18 21:49 LUMBAR SPINE COMPLETE [RAD] Stat - Medication Orders Current Medication Orders: Discontinued Medications Ketorolac Tromethamine (Toradol) 10 mg IVP STAT STA Stop: 05/29/18 21:35 Morphine Sulfate (Morphine) 2 mg IVP ONCE ONE Stop: 05/29/18 21:35 Disposition/Present on Arrival - Present on Arrival History of DVT/PE: No History of Uncontrolled Diabetes: No Urinary Catheter: No - Disposition
[2018-05-29] MEDS ORDERED: Morphine 4 MG/ML VIAL ONE (22:01)
--- NOTE | 2018-05-29 22:04 | ED PDOC ---
Lower Extremity Pain/Injury Time Seen by Provider: 05/29/18 21:04 Chief Complaint (Nursing): Hip Pain Chief Complaint (Provider): Left hip pain History Per: Patient History/Exam Limitations: no limitations Onset/Duration Of Symptoms: Days (2) Current Symptoms Are (Timing): Still Present Additional History Per: Patient Additional Complaint(s): 72yo male, history of diabetes, arthritis, CAD, CABG, left hip replacement, neuropathy, blindness, comes to ER with complains of left hip pain x 2 days. Patient denies any trauma and states the pain radiates to his left knee; he is able to ambulate normally and reports pain worsens with laying down. He denies any associated fever, warmth or redness to hip replacement site. No other medical complaints. PMD: Dr. Lin Orthopedist: Dr. Delgado Past Medical History Reviewed: Historical Data, Nursing Documentation, Vital Signs Vital Signs: Last Vital Signs Temp 98.6 F 05/29/18 20:28 Pulse 80 05/29/18 20:28 Resp 18 05/29/18 20:28 BP 171/106 H 05/29/18 20:28 Pulse Ox 98 05/29/18 20:28 - Medical History PMH: Anemia, Arthritis, CAD, CHF, COPD, Fractures, HTN, Hypercholesterolemia, Chronic Kidney Disease (renal insufficiency) - Surgical History Surgical History: CABG (CABG x 4 - 1997), Cholecystectomy (11/2002), Coronary Stent (2005 (3x)), Pacemaker - Family History Family History: States: Unknown Family Hx - Social History Current smoker - smoking cessation education provided: Yes Alcohol: None Drugs: Denies - Home Medications Home Medications: Ambulatory Orders Medication Instructions Recorded Atorvastatin [Lipitor] 40 mg PO DAILY 08/26/14 Brimonidine Tartrate/Timolol 1 drop OU BID 08/26/14 [Combigan 0.2%-0.5% Eye Drops] Clopidogrel [Plavix] 75 mg PO DAILY 08/26/14 Tamsulosin [Flomax] 0.4 mg PO DAILY 05/17/15 Insulin Aspart, Recombinant 12 units SC BID 12/28/15 [Novolog] Insulin Glargine,Hum.rec.anlog 25 units SC HS 12/28/15 [Lantus] Carvedilol [Coreg] 6.25 mg PO Q12 #0 tab 12/31/15 Furosemide [Lasix] 40 mg PO DAILY #0 udc 12/31/15 Potassium Chloride [K-Tab ER] 10 meq PO DAILY #30 tablet.er 12/31/15 Valsartan [Diovan] 160 mg PO DAILY #0 tab 12/31/15 Lidocaine 5% [Lidoderm] 1 ea TD QAM PRN #15 patch 05/30/18 - Allergies Allergies/Adverse Reactions: Allergies Allergy/AdvReac Type Severity Reaction Status Date / Time No Known Allergies Allergy Verified 12/29/16 12:11 Review of Systems ROS Statement: Except As Marked, All Systems Reviewed And Found Negative Constitutional: Negative for: Fever, Chills Cardiovascular: Negative for: Chest Pain Respiratory: Negative for: Shortness of Breath Musculoskeletal: Positive for: Other (left hip pain ) Neurological: Negative for: Weakness, Numbness Physical Exam - Reviewed Nursing Documentation Reviewed: Yes Vital Signs Reviewed: Yes - Physical Exam Appears: Positive for: Non-toxic, No Acute Distress Head Exam: Positive for: ATRAUMATIC, NORMAL INSPECTION, NORMOCEPHALIC Skin: Positive for: Normal Color, Warm Eye Exam: Positive for: Other (blind in bilateral eyes) Neck: Positive for: Normal, Supple Cardiovascular/Chest: Positive for: Regular Rate, Rhythm Respiratory: Positive for: Normal Breath Sounds Gastrointestinal/Abdominal: Positive for: Normal Exam, Soft Back: Positive for: Other (tednerness over left paralumbar region, left gluteal muscle) Extremity: Positive for: Normal ROM. Negative for: Calf Tenderness, Deformity, Swelling Neurologic/Psych: Positive for: Alert, Oriented, Other (able to ambulate with assistance and bear weight). Negative for: Motor/Sensory Deficits - Laboratory Results Result Diagrams: 05/30/18 00:11 05/29/18 22:17 - ECG O2 Sat by Pulse Oximetry: 98 (RA) Pulse Ox Interpretation: Normal Medical Decision Making Medical Decision Making: Impression: 72yo male with left hip pain, known history of left hip replacement Plan: -- XR Left Hip -- XR Lumbar Spine -- Labs -- Toradol 10mg IVP -- Morphine 2mg IVP Scribe Attestation: Documented by Rachell Perez, acting as a scribe for Jeremy Boyd MD. Provider Scribe Attestation: All medical record entries made by the Scribe were at my direction and personally dictated by me. I have reviewed the chart and agree that the record accurately reflects my personal performance of the history, physical exam, medical decision making, and the department course for this patient. I have also personally directed, reviewed, and agree with the discharge instructions and disposition. Time: 0055 -- L-Spine XR and left hip XR show no acute disease. -- Lip hip prosethetic intact. Degenerative Joint Disease noted on both. -- Labs show no significnat abnormalities. Patient to be discharged home with a diagnosis of Sciatica and left hip pain. Patient instructed to follow up with Dr. Delgado and Dr. Lin. Scribe Attestation: Documented by Parker Musa acting as a scribe for Jeremy Boyd MD. Provider Scribe Attestation: All medical record entries made by the Scribe were at my direction and personally dictated by me. I have reviewed the chart and agree that the record accurately reflects my personal performance of the history, physical exam, medical decision making, and the department course for this patient. I have also personally directed, reviewed, and agree with the discharge instructions and disposition. Disposition - Clinical Impression Clinical Impression: Hip pain, Sciatica - Patient ED Disposition Is Patient to be Admitted: No Counseled Patient/Family Regarding: Studies Performed, Diagnosis, Need For Followup, Rx Given - Disposition Referrals: Anatoly Delgado III, MD [Staff Provider] - Disposition: Routine/Home Disposition Time: 00:55 Condition: STABLE Prescriptions: Lidocaine 5% [Lidoderm] 1 ea TD QAM PRN #15 patch PRN Reason: hip pain Instructions: Sciatica, Hip Pain in Older People Forms: [facility] (Danish)
[2018-05-29 23:29] LABS: CALCIUM 9.6 mg/dL (8.4-10.2)
[2018-05-29 23:34] VITALS: BP 159/99; PULSE 84; RESP 16
[2018-05-29] MEDS ORDERED: Lidocaine 5% Patch TD STA (23:54)
[2018-05-30] MEDS ORDERED: Lidocaine 5% Patch TD ONE (00:02)
[2018-05-30 00:26] LABS: BASO # 0.1 K/uL (0.0-0.2); EOS # 0.2 K/uL (0.0-0.7); EOS % 2.7 % (0.0-4.0); HEMOGLOBIN 13.5 g/dL (12.0-18.0); LYMPH # 1.3 K/uL (1.0-4.3); LYMPH % 21.7 % (20.0-40.0); MEAN CELL VOLUME 90.7 fl (80.0-94.0); MEAN CORPUSCULAR HEMOGLOBIN 29.5 pg (27.0-31.0); MEAN CORPUSCULAR HGB CONC 32.5 g/dL (33.0-37.0); MEAN PLATELET VOLUME 8.9 fl (7.2-11.7); MONO # 0.6 K/uL (0.0-0.8); NEUT % 64.6 % (50.0-75.0); RBC 4.58 Mil/uL (4.40-5.90); RED CELL DISTRIBUTION WIDTH 14.7 % (11.5-14.5); WHITE BLOOD COUNT 6.1 K/uL (4.8-10.8)
[2018-05-30 01:06] VITALS: O2SAT 98
--- NOTE | 2018-05-30 08:43 | RAD ---
Date of service: 05/29/2018 PROCEDURE: HISTORY: pain COMPARISON: 05/12/2015 TECHNIQUE: AP pelvis and frog's leg view. FINDINGS: Interval left total hip prosthesis. The acetabular femoral stem components appear intact and normally aligned. Cyst left superior subchondral cystic changes are similar. Advanced right arthrosis and advanced degenerative disc disease and spondylosis L3-4 level noted. Extensive bilateral vascular calcifications present. No fracture appreciated IMPRESSION: Interval left total hip replacement. No interval fracture here or gross hardware failure apparent. Elsewhere degenerative changes as above
--- NOTE | 2018-05-30 08:45 | RAD ---
Date of service: 05/29/2018 PROCEDURE: Radiographs of the Lumbar Spine. HISTORY: back COMPARISON: No prior. FINDINGS: BONES: Normal alignment. No listhesis. No fracture. DISC SPACES: Marked disc space narrowing L3-4 with advanced subchondral sclerosis here. OTHER FINDINGS: L3-4 L4-5 and L5-S1 facet hypertrophic arthrosis. Atherosclerotic extensive vascular calcifications present. IMPRESSION: L3-4 degenerative disc disease. Facet hypertrophic arthrosis. Extensive atherosclerotic vascular disease
== END 2018-05-30 00:58 | disposition home or self-care (01) ==
LOC: H.ER 20:23
DX: M25.552 Pain in left hip (principal); M54.32 Sciatica, left side; E78.00 Pure hypercholesterolemia, unspecified; I13.0 Hypertensive heart and chronic kidney disease with heart failure and stage 1 through stage 4 chronic kidney disease, or unspecified chronic kidney disease
CPT/HCPCS: 72114; 73502; 80048; 82948; 85025; 87040; 96374; 96375; 99284; J1885; J2270

== ENCOUNTER 2018-06-30 15:17 | Emergency (ER) | payer MEDICARE ==
[2018-06-30 15:17] VITALS: BMI 24.2
[2018-06-30 15:25] VITALS: RESP 18
--- NOTE | 2018-06-30 16:39 | ED PDOC ---
HPI: Psych/Substance Abuse Time Seen by Provider: 06/30/18 15:28 Chief Complaint (Nursing): Anxiety Chief Complaint (Provider): Anxiety History/Exam Limitations: no limitations Additional Complaint(s): Raj Peterson, a 73 year old male with extensive cardiac history including PA, triple bypass and AICD, presents to the emergency department with anxiety. Patient states he is worried he is having an anxiety attack and says he feels very claustrophobic when in his room but does not feel he is having a heart attack and now feels well. His main concern now is getting home by 7 pm for the [employer] baseball game. No further medical complaints. Past Medical History Reviewed: Historical Data, Nursing Documentation, Vital Signs Vital Signs: Last Vital Signs Temp 97.7 F 06/30/18 15:23 Pulse 75 06/30/18 15:23 Resp 18 06/30/18 15:23 BP 145/74 06/30/18 15:23 Pulse Ox 98 06/30/18 15:23 - Medical History PMH: Anemia, Arthritis, CAD, CHF, COPD, Fractures, HTN, Hypercholesterolemia, Chronic Kidney Disease (renal insufficiency) Other PMH: PA, AICD - Surgical History Surgical History: CABG (CABG x 4 - 1997), Cholecystectomy (11/2002), Coronary Stent (2005 (3x)), Pacemaker Other surgeries: triple bypass - Family History Family History: States: Unknown Family Hx - Home Medications Home Medications: Ambulatory Orders Medication Instructions Recorded RX: Atorvastatin [Lipitor] 40 mg PO DAILY 08/26/14 RX: Brimonidine Tartrate/Timolol 1 drop OU BID 08/26/14 [Combigan 0.2%-0.5% Eye Drops] RX: Clopidogrel [Plavix] 75 mg PO DAILY 08/26/14 RX: Tamsulosin [Flomax] 0.4 mg PO DAILY 05/17/15 RX: Insulin Aspart, Recombinant 12 units SC BID 12/28/15 [Novolog] RX: Insulin Glargine,Hum.rec.anlog 25 units SC HS 12/28/15 [Lantus] RX: Carvedilol [Coreg] 6.25 mg PO Q12 #0 tab 12/31/15 RX: Furosemide [Lasix] 40 mg PO DAILY #0 udc 12/31/15 RX: Potassium Chloride [K-Tab ER] 10 meq PO DAILY #30 tablet.er 12/31/15 RX: Valsartan [Diovan] 160 mg PO DAILY #0 tab 12/31/15 Lidocaine 5% [Lidoderm] 1 ea TD QAM PRN #15 patch 05/30/18 Lorazepam [Ativan] 0.5 mg PO DAILY PRN #6 tab 06/30/18 - Allergies Allergies/Adverse Reactions: Allergies Allergy/AdvReac Type Severity Reaction Status Date / Time No Known Allergies Allergy Verified 06/30/18 15:23 Review of Systems ROS Statement: Except As Marked, All Systems Reviewed And Found Negative Cardiovascular: Negative for: Chest Pain Respiratory: Negative for: Shortness of Breath Psych: Positive for: Anxiety Physical Exam - Reviewed Nursing Documentation Reviewed: Yes Vital Signs Reviewed: Yes - Physical Exam Appears: Positive for: Well, Non-toxic, No Acute Distress Head Exam: Positive for: ATRAUMATIC, NORMAL INSPECTION, NORMOCEPHALIC Skin: Positive for: Normal Color, Warm, DRY Eye Exam: Positive for: EOMI, Normal appearance, PERRL ENT: Positive for: Normal ENT Inspection Neck: Positive for: Normal Cardiovascular/Chest: Positive for: Regular Rate, Rhythm Respiratory: Positive for: Normal Breath Sounds. Negative for: Respiratory Distress Extremity: Positive for: Normal ROM, Other (dry flaky skin to lower extremities) Neurologic/Psych: Positive for: Alert, Oriented - Laboratory Results Result Diagrams: 06/30/18 17:00 06/30/18 17:00 - ECG O2 Sat by Pulse Oximetry: 98 (RA) Pulse Ox Interpretation: Normal Medical Decision Making Medical Decision Making: Time: 15:28 Initial Impression: rule out cardiac etiology for symptoms Initial Plan: --EKG --BMP --Troponin --CBC w/ differential --CXR portable --Lorazepam 0.5 mg PO -if all results are negative, will discharge -nephew is present and states he can take care of patient if discharged today Scribe Attestation: Documented by Hali Cunningham, acting as a scribe for Amina Lozada MD. Provider Scribe Attestation: All medical record entries made by the Scribe were at my direction and personally dictated by me. I have reviewed the chart and agree that the record accurately reflects my personal performance of the history, physical exam, medical decision making, and the department course for this patient. I have also personally directed, reviewed, and agree with the discharge instructions and disposition. Disposition - Clinical Impression Clinical Impression: Anxiety, Renal failure - Disposition Referrals: Fer Hutchins MD [Staff Provider] - Disposition: Routine/Home Disposition Time: 17:45 Condition: IMPROVED Additional Instructions: Follow up with primary medical doctor. Contact the production machine shop supervisor (kidney doctor) as referred or the production machine shop supervisor of your choice. Return to the emergency department at anytime if your symptoms return or if you develop new symptoms. Prescriptions: Lorazepam [Ativan] 0.5 mg PO DAILY PRN #6 tab PRN Reason: Anxiety Instructions: Anxiety, Adult (DC), Kidney Failure (DC) Forms: [facility] (Tristanian) Print Language: MALTESE
--- NOTE | 2018-06-30 17:02 | RAD ---
Date of service: 06/30/2018 HISTORY: possible admission COMPARISON: Chest radiograph dated 12/29/2016 FINDINGS: LUNGS: No active pulmonary disease. PLEURA: No significant pleural effusion identified, no pneumothorax apparent. CARDIOVASCULAR: Left subclavian access AICD/pacemaker redemonstrated. Prior sternotomy with sternal wires and surgical clips in place. Atherosclerotic aortic calcifications. Cardiomediastinal silhouette stably enlarged OSSEOUS STRUCTURES: Unchanged. VISUALIZED UPPER ABDOMEN: Right upper quadrant surgical clips. OTHER FINDINGS: None. IMPRESSION: No active disease.
[2018-06-30 17:05] LABS: BASO # 0.1 K/uL (0.0-0.2); EOS # 0.3 K/uL (0.0-0.7); HEMOGLOBIN 12.8 g/dL (12.0-18.0); LYMPH # 1.2 K/uL (1.0-4.3); LYMPH % 16.7 % (20.0-40.0); MEAN CELL VOLUME 91.1 fl (80.0-94.0); MEAN CORPUSCULAR HEMOGLOBIN 29.9 pg (27.0-31.0); MEAN CORPUSCULAR HGB CONC 32.8 g/dL (33.0-37.0); MEAN PLATELET VOLUME 9.2 fl (7.2-11.7); MONO # 0.9 K/uL (0.0-0.8); MONO % 12.6 % (0.0-10.0); NEUT # 4.7 K/uL (1.8-7.0); NEUT % 65.7 % (50.0-75.0); RBC 4.28 Mil/uL (4.40-5.90); RED CELL DISTRIBUTION WIDTH 14.6 % (11.5-14.5); WHITE BLOOD COUNT 7.2 K/uL (4.8-10.8)
[2018-06-30 18:11] LABS: TROPONIN I 0.028 ng/mL (0.00-0.120)
[2018-06-30 18:37] VITALS: BP 154/79; PULSE 81; TEMP 97.6
--- NOTE | 2018-07-01 09:17 | CARD ---
APPROVED REPORT Date of service: 06/30/2018 EKG Measurement Heart [id number] <Conclusion> Normal sinus rhythm Left axis deviation Right bundle branch block Anteroseptal infarct, age undetermined Abnormal ECG
[2018-07-01 14:43] VITALS: O2SAT 98
== END 2018-06-30 18:10 | disposition home or self-care (01) ==
LOC: H.ER 15:17
DX: N19 Unspecified kidney failure (principal); F41.9 Anxiety disorder, unspecified; I13.0 Hypertensive heart and chronic kidney disease with heart failure and stage 1 through stage 4 chronic kidney disease, or unspecified chronic kidney disease; J44.9 Chronic obstructive pulmonary disease, unspecified